=== PATIENT | female | born 1950 ===

== ENCOUNTER 2016-09-25 13:42 | Emergency (ER) | payer MEDICARE ==
[2016-09-25 13:53] VITALS: TEMP 98.2
[2016-09-25] MEDS ORDERED: ONDANSETRON 4 MG/2 ML VIAL IVP STA (14:11)
[2016-09-25] MEDS ORDERED: HYDROmorphone 1 MG/ML 1 ML SYRINGE IVP STA ×2 (14:11→15:49)
[2016-09-25] MEDS ORDERED: SODIUM CHLORIDE 0.9% 500 ML IV ONE (14:12)
--- NOTE | 2016-09-25 14:14 | ED ---
Fall HPI <Grant Smith - Last Filed: 09/25/16 16:49> - General Source: patient, RN notes reviewed Mode of arrival: ambulatory Limitations: no limitations <Guillermo Pisano - Last Filed: 09/25/16 16:59> - General Chief Complaint: Fall Stated Complaint: Fall Time Seen by Provider: 09/25/16 13:57 - History of Present Illness Initial Comments: 58-year-old female presents emergency Department chief complaint sudden fall. She states she was outside taking down [employer] decorations and which she tripped over the dog leash falling forward onto concrete. Patient states she hit the right side of her face, chipped her teeth. Patient states that she did not lose consciousness. Denies any neck or back pain. Patient states she has severe left wrist pain. Patient is right-hand dominant. There is a deformity noted to the left wrist. Patient states she feels very lightheaded, dizzy, nauseated. (Guillermo Pisano) - Related Data Home Medications Medication Instructions Recorded Confirmed Cyanocobalamin [Vitamin B-12] 250 mcg SQ Q14D 08/03/15 09/25/16 Estradiol Cream [Estrace Cream] 1 applic VAGINAL SA 08/03/15 09/25/16 Sucralfate [Carafate] 1 gm PO QID PRN 08/03/15 09/25/16 Thyroid,Pork [[place] Thyroid] 15 mg PO DAILY 08/03/15 09/25/16 Previous Rx's Medication Instructions Recorded Hydrocodone/Acetaminophen [[place] 1 tab PO Q6HR PRN #20 tab 09/25/16 5-325] Allergies Allergy/AdvReac Type Severity Reaction Status Date / Time codeine Allergy Rash/Hives Verified 09/25/16 14:57 meperidine HCl [From Demerol] Allergy Rash/Hives Verified 09/25/16 14:57 Penicillins Allergy Rash/Hives Verified 09/25/16 14:57 alcohol AdvReac Severe Flushing Verified 09/25/16 14:57 Review of Systems ROS Other: All systems not noted in ROS Statement are negative. <Grant Smith - Last Filed: 09/25/16 16:49> ROS Other: All systems not noted in ROS Statement are negative. <Guillermo Pisano - Last Filed: 01/01/17 16:59> ROS Statement: Those systems with pertinent positive or pertinent negative responses have been documented in the HPI. (Grant Smith) (Guillermo Pisano) Past Medical History Additional Past Medical History / Comment(s): anemia History of Any Multi-Drug Resistant Organisms: None Reported Past Surgical History: Cholecystectomy, Hysterectomy, Orthopedic Surgery, Tonsillectomy Additional Past Surgical History / Comment(s): left knee, sinus Past Psychological History: No Psychological Hx Reported Smoking Status: Never smoker Past Alcohol Use History: None Reported Past Drug Use History: None Reported <Guillermo Pisano - Last Filed: 09/25/16 16:59> General Exam General appearance: alert, in no apparent distress Head exam: Present: atraumatic, normocephalic, normal inspection Eye exam: Present: normal appearance, PERRL, EOMI. Absent: scleral icterus, conjunctival injection, periorbital swelling ENT exam: Present: mucous membranes moist. Absent: normal oropharynx (Dental fracture noted of #8 and 9) Neck exam: Present: normal inspection, full ROM. Absent: tenderness, meningismus, lymphadenopathy Respiratory exam: Present: normal lung sounds bilaterally. Absent: respiratory distress, wheezes, rales, rhonchi, stridor Cardiovascular Exam: Present: regular rate, normal rhythm, normal heart sounds. Absent: systolic murmur, diastolic murmur, rubs, gallop, clicks Extremities exam: Present: other (Left wrist there is an obvious deformity, radial pulses equal bilaterally Refill less than 2 seconds full sensation of the digits patient has limited range of motion) Back exam: Present: full ROM. Absent: tenderness Neurological exam: Present: alert, oriented X3, CN II-XII intact, reflexes normal. Absent: motor sensory deficit Skin exam: Present: warm, dry, intact, normal color. Absent: rash <Guillermo Pisano - Last Filed: 09/25/16 16:59> Procedures <Grant Smith - Last Filed: 09/25/16 16:49> <Guillermo Pisano - Last Filed: 09/25/16 16:59> - Procedures Initial comment: Procedure; permission for conscious sedation obtained, conscious sedation was needed to reduce a distal left radius fracture. At bedside with the physician ER physician and orthopod, ER nurse, termite technician. The patient's vital signs were monitored before during and after and no time to the patient's pulse ox dropped below 97%. The patient was monitored consecutively inconsistently. Length of procedure 25 minutes. A total of 18 mg of etomidate was used to sedate the patient was allowed the orthopedic surgeon to reduce the fracture and apply a cast. Length of procedure [address] Smith (Grant Smith) Disposition <Grant Smith - Last Filed: 09/25/16 16:49> Time of Disposition: 16:58 <Guillermo Pisano - Last Filed: 09/25/16 16:59> Clinical Impression: Fall, Facial contusion, Tooth fracture, Left wrist fracture Disposition: HOME SELF-CARE Condition: Stable Instructions: Arm Fracture in Adults (ED) Additional Instructions: Please return to the Emergency Department if symptoms worsen or any other concerns. Prescriptions: Hydrocodone/Acetaminophen [[place] 5-325] 1 tab PO Q6HR PRN #20 tab PRN Reason: Pain Referrals: Ace Moody MD [Primary Care Provider] - 1-2 days Man Estrella MD [STAFF PHYSICIAN] - 1-2 days
--- NOTE | 2016-09-25 15:16 | CT ---
EXAMINATION TYPE: CT brain wo con DATE OF EXAM: 09/25/2016 3:10 PM COMPARISON: 11/09/2009 HISTORY: Fall CT DLP: 1052 mGycm Automated exposure control for dose reduction was used. FINDINGS: The ventricles and sulci appear normal. There is no mass effect or midline shift. There is no sign of intracranial hemorrhage. The calvarium appears intact. I see no fracture. IMPRESSION: Negative unenhanced head CT scan. No change.
--- NOTE | 2016-09-25 15:22 | CT ---
EXAMINATION TYPE: CT facial bones wo con DATE OF EXAM: 09/25/2016 3:11 PM COMPARISON: NONE HISTORY: Fall CT DLP: 793 mGycm Automated exposure control for dose reduction was used. TECHNIQUE: CT scan of the sinuses is performed without contrast, axial images are obtained, coronal r eformatted images are also reviewed. FINDINGS: The orbital margins are intact. The maxilla is intact. Nasal bone is intact. Zygomatic arches appear normal. The mandibular ring appears intact. There is evidence of previous surgery on the maxillary si nuses. There is normal aeration of the paranasal sinuses. I see no bony destructive process. There is no sign of a blowout fracture. There is no evidence of an orbital mass. IMPRESSION: Negative CT scan of the facial bones. No fracture seen.
--- NOTE | 2016-09-25 15:31 | XR ---
EXAMINATION TYPE: XR wrist complete LT DATE OF EXAM: 09/25/2016 3:07 PM COMPARISON: NONE HISTORY: Fell today TECHNIQUE: 4 views FINDINGS: There is an impacted comminuted fracture of the distal radius. There is also adjacent fract ure of ulnar styloid process. There is no dislocation. There is posterior displacement of the carpus in relation to the radius. Carpal bones are intact. IMPRESSION: Severely comminuted impacted distal radius fracture.
[2016-09-25] MEDS ORDERED: ETOMIDATE 2 MG/ML 10 ML VIAL IVP STA ×2 (15:50→16:42)
[2016-09-25 16:42] VITALS: PULSE 92
[2016-09-25 16:52] VITALS: BP 148/69; RESP 16
--- NOTE | 2016-09-27 10:03 | CONS ---
DATE OF CONSULTATION: 09/25/2016 REASON FOR CONSULTATION: Left displaced close distal radius fracture. Lakshmi is a very pleasant 66-year-old female. Earlier in the day on September 25, 2016 she tripped over a dog and fell onto an outstretched left hand. She had obvious deformity and immediate pain in the left wrist. She was brought by her to [facility] emergency department. Work-up including x-rays revealed a significantly displaced left closed distal radius fracture. I was called by the ER physician. I presented to the ER for evaluation of her severe left wrist injury. I saw her in the emergency department. She was resting comfortably. She had obvious deformity to the left wrist. She had no complaints of pain anywhere else. Obvious deformity left wrist. The skin was intact. There is no evidence of open fracture. She had intact sensation distally in her fingers and brisk capillary refill distally in her fingers. She had no pain proximally in the forearm or the elbow on the left side. X-RAYS: Views of the wrist show a severely displaced left distal radius fracture. IMPRESSION: Left closed distal radius fracture. RECOMMENDATIONS: Very significantly displaced fracture. Recommendation was made to go forward with closed reduction under hematoma block with mild sedation by the emergency department. This was discussed with both Sharon and her . Separate note will be dictated for the procedure note for reduction and application of short arm splint. Following the reduction, Lakshmi will be discharged to home. I did give her my office card number, she will follow up with me this upcoming Monday in the office. We will continue to evaluate her wrist, and make further treatment decisions at that time.
--- NOTE | 2016-09-27 13:54 | PCN ---
DATE OF PROCEDURE: 09/25/2016 SURGEON: RAVINDER OLIVARES MD PREOPERATIVE DIAGNOSIS: Left closed displaced distal radius fracture. POSTOPERATIVE DIAGNOSIS: Left closed displaced distal radius fracture. OPERATION: 1. Closed reduction left closed distal radius fracture. 2. Short arm splint application left wrist. ANESTHESIA: A hematoma block with conscious sedation administered per the emergency department physician. COMPLICATIONS: None apparent. INDICATIONS: Please see the emergency department note dictated by myself for her history. DESCRIPTION OF THE PROCEDURE: The dorsum of the left wrist was sterilized with alcohol and Betadine. I then utilized 10 mL of 2% lidocaine without epinephrine for hematoma block. This is administered dorsally into the fracture site. This provided good analgesia for the procedure. She also was given conscious sedation as per the emergency department physician. Please see his note for details about that. I then proceeded to reduce her fracture longitudinal traction and manual reduction techniques. There was noticeable deformity correction of the wrist done with the reduction. I then placed a very well-padded sugar-tong splint. This was well molded. She had intact flexion-extension of all of her fingers. She had intact sensation in all of her fingers and she had brisk capillary refill in all of her fingers as well. Lakshmi tolerated the procedure well without any complication.
== END 2016-09-25 17:00 | disposition home or self-care (01) ==
LOC: EC 13:42
DX: S52.592A Other fractures of lower end of left radius, initial encounter for closed fracture (principal); S00.83XA Contusion of other part of head, initial encounter; S02.5XXA Fracture of tooth (traumatic), initial encounter for closed fracture; Z88.0 Allergy status to penicillin; Z88.5 Allergy status to narcotic agent; Z91.048 Other nonmedicinal substance allergy status; Z79.899 Other long term (current) drug therapy; W18.09XA Striking against other object with subsequent fall, initial encounter; Y93.89 Activity, other specified; Y92.017 Garden or yard in single-family (private) house as the place of occurrence of the external cause
CPT/HCPCS: 99284; 96374; 96375; 96376; 25605; 73110; 70486; 70450; J2405; J1170

== ENCOUNTER → 2016-12-08 | Outpatient (CLI) | payer MEDICARE ==
[2016-12-07 14:14] VITALS: BMI 25.8
[2016-12-08 10:56] VITALS: BP 150/73; PULSE 92; RESP 16
--- NOTE | 2016-12-10 19:08 | P.CONS ---
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 ,and he recommended stellate ganglion block, and she was placed on Neurontin 300 mg daily, increase gradually to 3 times a day, patient already started physical therapy and she feels her symptoms improving, and her pain is subsiding she is able to do physical therapy, which helped significantly, and currently patient here for second opinion regarding the interventional pain management, patient denies any fever or night sweats, she denies any discharge from the incision area, and she denies any discoloration of her left triceps Past Medical History Past Medical History: Eye Disorder, GERD/Reflux, Thyroid Disorder Additional Past Medical History / Comment(s): anemia, lt wrist and hand pt states possible nerve damage to lt wrist History of Any Multi-Drug Resistant Organisms: None Reported Past Surgical History: Cholecystectomy, Hysterectomy, Orthopedic Surgery, Tonsillectomy Additional Past Surgical History / Comment(s): left knee, sinus, scleral buckle surgery, ORIF lt wrist (10-14-16) Past Anesthesia/Blood Transfusion Reactions: Motion Sickness, Postoperative Nausea & Vomiting (PONV) Past Psychological History: No Psychological Hx Reported Smoking Status: Never smoker Past Alcohol Use History: None Reported Past Drug Use History: None Reported - Past Family History Mother Family Medical History: Deep Vein Thrombosis (DVT), Vascular Disorder Medications and Allergies Home Medications Medication Instructions Recorded Confirmed Type Cyanocobalamin [Vitamin B-12] 250 mcg SQ Q14D 08/03/15 12/08/16 History Estradiol Cream [Estrace Cream 1 applic VAGINAL SA 08/03/15 12/08/16 History 0.01%] Sucralfate [Carafate] 1 gm PO QID PRN 08/03/15 12/08/16 History Thyroid,Pork [[place] Thyroid] 15 mg PO DAILY 08/03/15 12/08/16 History HYDROcodone/APAP 5-325MG [[place] 1 tab PO Q6HR PRN 12/08/16 12/08/16 History 5-325] Allergies Allergy/AdvReac Type Severity Reaction Status Date / Time codeine Allergy Rash/Hives Verified 12/07/16 14:00 meperidine HCl [From Demerol] Allergy Rash/Hives Verified 12/07/16 14:00 Penicillins Allergy Rash/Hives Verified 12/07/16 14:00 alcohol AdvReac Severe Flushing Verified 12/07/16 14:00 Physical Exam Social history : not smoker , NO ETOH , NO Illegal cecilia Review of Systems : 1- Constitutional : no chills , no fever , no night sweats , 2- Ears : no ear discharge , no change in hearing 3-Nose, Mouth ,Throat ; no bleeding gums, no sore throat , no epistaxis , 4-Cardiovascular : Denies chest pain, , no orthopnea , no palpitation 5-Respiratory : Denies cough , no dyspnea , no hemoptysis 6-Gastrointestinal :, no change in bowel habits , no coffee- ground emesis . 7-Genitourinary : No hematuria , no discharge , no incontinence, 8-Musculoskeletal : No gait dysfunction , report left wrist pain 9- Neurological : no ataxia , no tremor , no sezure , 10-Psychatric , no suicidal ideation no hallucination 11- Endocrine : no cold intolerence , no polyuria , no polydypsia , 12-Hematologic : no easy bleeding , no easy brusing , 13-Allergic / immunology : no angioedema , no wheezing ,no allergic rhinitis 14-Integumentary : no brttle nails , [id number] swelling in her left wrist Physical Examinations : 1-Constitutional : Cooperative , not in acute distress . 2-HEENT : nech ; supple , no Lymphadenopathy , no Thyromegaly , :eyes , no icterus, no photophobia . ENT : , normal oropharynx , no Thrush 3- Respiratory : Chest clear to auscultations Bilaterally , no wheezing . 4- Cardiovascular : regular rate and rhythem , S1 , S2 , no S3 , no S4. 5- Gastrointestinal: abdomen soft no tenderness , no organomegally . 6- Genitourinary : Defferred . 7-Integumentary : No cellulitis , no ulcers , normal skin turgor , no cyanotic . 8- neurologic : Cranial nerve II to XII intact , no focal neurological deffecit 9-psychatric : alert , oriented X 3 , appropriate affect , intact judgment and insight . 10-Lymphatic : no Lymphadenopathy. 11- musculoskeltal: normal gait , exams of the cervical spine = motor stregnth in the deltoid and biceps, normal right side , normal Left side motor stregnth biceps and the wrist extensors normal right side , decreased left side . 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, patient reported that her symptoms are improving, the swelling subsided significantly, and the pain improving, and she reported that the current pain medication [place] 5/325 is helping her pain, and she is able to do physical therapy without any problem, she was given prescription for Neurontin 300 mg daily at bedtime and increase gradually to 3003 times a day, which she didn't fill up the prescription yet, I encouraged patient to start using Neurontin 300 mg and increase gradually to 3 times a day, encouraged patient to use [place] 5/325 when needed for pain, and encouraged patient to do physical therapy(she is doing it twice a day and she reported that she had significant improvement from physical therapy), explained to the patient the side effects of selected ganglion block and the risks and benefits of the block, and she is concerned about the injection, and I discussed with her ,that in case of her symptoms not improving, or worsening,then she is definitely could benefit from the stellate ganglion block,, patient will follow up with [facility] pain clinic, if she wished to proceed with the stellate ganglion block,, and she will follow up with pain clinic at [facility] . Time with Patient: Less than 30
== END | disposition home or self-care (01) ==
LOC: PNWHC3 10:24
PROVIDERS: ATTEND Specialist
DX: G90.512 Complex regional pain syndrome I of left upper limb (principal); Z79.891 Long term (current) use of opiate analgesic; Z88.5 Allergy status to narcotic agent; Z88.0 Allergy status to penicillin
CPT/HCPCS: 99211

== ENCOUNTER → 2017-01-19 | Outpatient (CLI) | payer MEDICARE ==
--- NOTE | 2017-01-19 12:16 | USB ---
Reason for exam: follow-up at short interval from prior study. History: Patient is postmenopausal. Took estrogen for 4 years 4 months beginning at age 54. Taking other hormone for 4 years. Physical Findings: Nurse Summary: less than 0.5cm nodule in the left breast at 12 o'clock (nurse kp). US Breast LT Left breast ultrasound demonstrates a 0.3 x 0.2 x 0.2cm lesion too small to characterize at 5 o'clock versus 3 x 1 x 2mm previously, suggests a benign etiology and a 0.4 x 0.4 x 0.3cm oval, cystic lesion at 10 o'clock versus 4 x 3 x 2mm previously, benign. The previous 12 o'clock lesion is no longer seen. Patient due for annual exam in 6 months which can be performed in diagnostic clinic to ensure stability from 07/14/15. These results were verbally communicated with the patient and result sheet given to the patient on 01/19/17. ASSESSMENT: Probably benign, BI-RAD 3 RECOMMENDATION: Follow-up diagnostic mammogram of both breasts in 6 months. Back on schedule for June 2017.
== END | disposition home or self-care (01) ==
LOC: RADUSWWP 09:52
PROVIDERS: ATTEND Internal Medicine
DX: R92.8 Other abnormal and inconclusive findings on diagnostic imaging of breast (principal)

== ENCOUNTER → 2017-08-07 | Outpatient (CLI) | payer MEDICARE ==
--- NOTE | 2017-08-07 11:38 | MM ---
Reason for exam: additional evaluation requested from prior study. Last mammogram was performed 1 year and 1 month ago. History: Patient is postmenopausal. Took estrogen for 4 years 4 months beginning at age 54. Taking other hormone for 4 years. Physical Findings: Nurse did not find any significant physical abnormalities on exam. MG 3D Diag Mammo W/Cad AMRKUS Bilateral CC and MLO view(s) were taken. Prior study comparison: July 20, 2016, bilateral MG 3d diag mammo w/cad MARKUS. January 08, 2016, left breast MG 3d diag mammo w/cad LT. There are scattered fibroglandular densities. Focal asymmetry in the right upper outer quadrant is unchanged. No significant new findings when compared with previous films. These results were verbally communicated with the patient and result sheet given to the patient on 08/07/17. ASSESSMENT: Negative, BI-RAD 1 RECOMMENDATION: Routine screening mammogram of both breasts in 1 year.
--- NOTE | 2017-08-07 17:07 | BD ---
EXAMINATION TYPE: MG DEXA axial skeleton. DATE OF EXAM: 08/07/2017 COMPARISON: NONE CLINICAL HISTORY: 66 year-old female known osteoporosis Height: 67.7 IN Weight: 177 LBS FRAX RISK QUESTIONS: Alcohol (3 or more units per day): NO Family History (Parent hip fracture): YES FATHER AGE 89 Glucocorticoids (More than 3mos): NO (Ex: prednisone, prednisolone, methylprednisolone, dexamethasone, and hydrocortisone). History of Fracture in Adulthood: YES AGE 66 LEFT WRIST Secondary Osteoporosis: 1. Type 1 Diabetes: NO 2. Hyperthyroidism: NO 3. Menopause before 45: NO 4. Malnutrition: NO 5. Chronic liver disease: NO Rheumatoid Arthritis: YES Current Tobacco Use: NO RISK FACTORS HISTORY OF: History of Wrist Fracture: YES LEFT When: AGE 66 Surgery to Wrist (left): YES LEFT When: AGE 66 Family History of Osteoporosis: YES FATHER Active: YES Diet low in dairy products/other sources of calcium: YES Postmenopausal woman: AGE 52 Take estrogen and/or progesterone medications: NOT NOW How long: AGE 52 - 56 MEDICATIONS: Thyroid Medications: YES Which medication: ARMOUR THYROID How Lon + YEARS Additional Medications: CALCIUM, VIT D, ARMOUR, B12 INJECTIONS, CARAFATE, EXAM MEASUREMENTS: Bone mineral densitometry was performed using the Volly System. Bone mineral density as measured about the Lumbar spine is: ----- L1-L4(G/cm2): 1.034 T Score Values are as follows: ----- L2: -1.4 ----- L3: -0.9 ----- L4: -1.2 ----- L1-L4: -1.2 Bone mineral density has: Decreased -4.9% since study of: 07/03/2014 Bone mineral density about the R hip (g/cm2): 0.766 Bone mineral density about the L hip (g/cm2): 0.757 T Score values are as follows: -----R Neck: -2.0 -----L Neck: -2.0 -----R Total: -2.0 -----L Total: -1.7 Bone mineral density has: Decreased 8% since study of: 07/03/2014 IMPRESSION: Osteopenia (T Score between -2.5 and -1 as noted by T score values There is slightly increased risk of fracture and the patient may be considered for treatment. Re-Screen 2-5 years. NOTE: T-SCORE=SD OF THE YOUNG ADULT MEAN.
== END | disposition home or self-care (01) ==
LOC: RADMAMWWP 09:41
PROVIDERS: ATTEND Internal Medicine
DX: M81.0 Age-related osteoporosis without current pathological fracture (principal); M85.80 Other specified disorders of bone density and structure, unspecified site; R92.8 Other abnormal and inconclusive findings on diagnostic imaging of breast; N60.09 Solitary cyst of unspecified breast
CPT/HCPCS: 77080; G0204; G0279

== ENCOUNTER 2017-08-11 08:02 | Day surgery (SDC) | payer MEDICARE ==
[2017-08-09 10:55] VITALS: BMI 26.6
[~2017-08-11 08:02] MED LIST: LACTATED RINGERS 1,000 ML IV SCH; LIDOCAINE 1% 20 ML VIAL (10MG/ML) FOR IV START INTRADERMA PRN
[2017-08-11 08:30] VITALS: TEMP 97.8
[2017-08-11] MEDS ORDERED: PROPOFOL 10 MG/ML 20 ML VIAL IV ONE (08:53)
--- NOTE | 2017-08-11 09:00 | P.PCN ---
Date of Procedure: 08/11/17 Procedure(s) Performed: BRIEF HISTORY: Patient is a 58-year-old, pleasant, white female, scheduled for an upper endoscopy as a part of evaluation of intermittent epigastric pain and history of pernicious anemia. Last upper endoscopy was in 2 years ago and was noted to have atrophic gastritis with intestinal metaplasia. PROCEDURE PERFORMED: Esophagogastroduodenoscopy with biopsy. PREOPERATIVE DIAGNOSIS: Epigastric pain/pernicious anemia. IV sedation per anesthesia. PROCEDURE: After informed consent was obtained, the patient was brought into the endoscopy unit. IV sedation was administered by Anesthesia under continuous monitoring. Initially the Olympus GIF-140 video endoscope was inserted into the mouth. Esophagus intubated without any difficulty. It was gradually advanced into the stomach and duodenum and carefully examined. The bulb and the second part of the duodenum appeared normal. The scope at this time was withdrawn to the stomach, adequately insufflated with air, and upon careful examination, mucosa of the antrum, body,had mild diffuse gastritis and biopsies were done from the antrum as well as body of the stomach. No ulcerations or masses identified. The cardia and the fundus appeared normal. The scope was then withdrawn into the esophagus. The GE junction was located at 39 cm from the incisors. The esophagus appeared normal. There were no erosions or ulcerations seen and the patient tolerated the procedure well. IMPRESSION: 1. Mild diffuse gastritis 2. No evidence of peptic ulcer disease or esophagitis RECOMMENDATIONS: The findings of this examination were discussed with the patient as well as a family. She was advised to follow with the biopsy results. She can have a repeat surveillance upper endoscopy in 2 years.
[2017-08-11 09:14] VITALS: RESP 18
[2017-08-11 09:25] VITALS: BP 130/63; PULSE 76
== END 2017-08-11 10:05 | disposition home or self-care (01) ==
LOC: ORWHC2ENDO 08:02
PROVIDERS: ATTEND Internal Medicine Gastroenterology
DX: K29.50 Unspecified chronic gastritis without bleeding (principal); D51.0 Vitamin B12 deficiency anemia due to intrinsic factor deficiency; E07.9 Disorder of thyroid, unspecified; Z88.0 Allergy status to penicillin; Z88.5 Allergy status to narcotic agent; Z91.09 Other allergy status, other than to drugs and biological substances; Z79.82 Long term (current) use of aspirin; Z79.899 Other long term (current) drug therapy
CPT/HCPCS: 43239; 88305; 88342; J2704

== ENCOUNTER → 2018-08-09 | Outpatient (CLI) | payer MEDICARE ==
--- NOTE | 2018-08-13 07:07 | MM ---
Reason for exam: screening (asymptomatic). Last mammogram was performed 1 year ago. History: Patient is postmenopausal. Took estrogen for 4 years 4 months beginning at age 54. Taking other hormone for 4 years. Physical Findings: A clinical breast exam by your physician is recommended on an annual basis and results should be correlated with mammographic findings. MG 3D Screening Mammo W/Cad Bilateral CC and MLO view(s) were taken. Prior study comparison: August 07, 2017, bilateral MG 3d diag mammo w/cad MARKUS. July 20, 2016, bilateral MG 3d diag mammo w/cad MARKUS. The breast tissue is heterogeneously dense. This may lower the sensitivity of mammography. New nodular density inner upper left breast 5.2cm from nipple. This finding is changed when compared with previous exams. ASSESSMENT: Incomplete: need additional imaging evaluation, BI-RAD 0 RECOMMENDATION: Special view mammogram and ultrasound of the left breast. [facility] will attempt to contact patient to return for supplemental views and ultrasound.
== END | disposition home or self-care (01) ==
LOC: RADMAMWWP 11:35
PROVIDERS: ATTEND Internal Medicine
DX: Z12.31 Encounter for screening mammogram for malignant neoplasm of breast (principal)
CPT/HCPCS: 77063; 77067

== ENCOUNTER → 2018-08-20 | Outpatient (CLI) | payer MEDICARE ==
--- NOTE | 2018-08-20 14:51 | MM ---
Reason for exam: additional evaluation requested from abnormal screening. Last mammogram was performed less than 1 month ago. History: Patient is postmenopausal. Took estrogen for 4 years 4 months beginning at age 54. Taking other hormone for 4 years. Physical Findings: Nurse Summary: 1cm nodule in the left breast at 2 o'clock (nurse trevor). MG 3D Work Up W/Cad LT Spot compression CC, spot compression MLO, and ML view(s) were taken of the left breast. Prior study comparison: August 09, 2018, bilateral MG 3d screening mammo w/cad. August 07, 2017, bilateral MG 3d diag mammo w/cad [facility]US. There are scattered fibroglandular densities. Finding: There is a 5 mm circumscribed round mass located 4 cm from the nipple in the left breast. These results were verbally communicated with the patient and result sheet given to the patient on 08/20/18. ASSESSMENT: Incomplete: need additional imaging evaluation, BI-RAD 0 RECOMMENDATION: Ultrasound of the left breast.
--- NOTE | 2018-08-20 14:53 | USB ---
Reason for exam: additional evaluation requested from abnormal screening. History: Patient is postmenopausal. Took estrogen for 4 years 4 months beginning at age 54. Taking other hormone for 4 years. US Breast Workup Limited LT Left limited breast ultrasound including focal area of concern, retroareolar and axilla demonstrates a 0.5 x 0.5 x 0.3cm oval, cystic lesion at 10 o'clock, a 0.6 x 0.4 x 0.2cm cystic cluster at 11 o'clock and a 0.9 x 0.7 x 0.4cm oval, hypoechoic, vascular lesion at 1 o'clock BB, questionable lymph node. These results were verbally communicated with the patient and result sheet given to the patient on 08/20/18. ASSESSMENT: Benign, BI-RAD 2 RECOMMENDATION: Return to routine screening mammogram schedule for both breasts.
== END | disposition home or self-care (01) ==
LOC: RADMAMWWP 13:14
PROVIDERS: ATTEND Internal Medicine
DX: R92.8 Other abnormal and inconclusive findings on diagnostic imaging of breast (principal)
CPT/HCPCS: 77065; 76642; G0279; 77061

== ENCOUNTER → 2018-12-24 | Outpatient (CLI) | payer MEDICARE ==
--- NOTE | 2018-12-24 12:02 | US ---
EXAMINATION TYPE: US groin LT DATE OF EXAM: 12/24/2018 COMPARISON: NONE CLINICAL HISTORY: Left groin pain. Patient states having left groin pain. No bulge. Area of pain scanned. Valsalva maneuvers and contralateral images taken. No prominent masses, lesio ns or fluid collections seen. Hernia not visualized. IMPRESSION: Dedicated MSK ultrasound was not performed. The area scanned shows no suspicious abnorma lity as detailed above.
== END | disposition home or self-care (01) ==
LOC: RADUSWWP 10:44
PROVIDERS: ATTEND Internal Medicine
DX: R10.30 Lower abdominal pain, unspecified (principal); S76.219A Strain of adductor muscle, fascia and tendon of unspecified thigh, initial encounter

== ENCOUNTER 2019-08-07 07:33 | Day surgery (SDC) | payer MEDICARE ==
[2019-08-05 18:24] VITALS: BMI 26.3
[2019-08-07 08:15] VITALS: TEMP 97.8
[2019-08-07] MEDS ORDERED: LIDOCAINE 1% INJ 10MG/ML (20 ML MDV) ONE (08:28)
[2019-08-07] MEDS ORDERED: PROPOFOL 10 MG/ML 20 ML VIAL IV ONE (08:28)
--- NOTE | 2019-08-07 08:42 | P.PCN ---
Date of Procedure: 08/07/19 Procedure(s) Performed: BRIEF HISTORY: Patient is a 68-year-old, pleasant, female, scheduled for an upper endoscopy as a part of follow-up of pernicious anemia and chronic atrophic gastritis diagnosed 15 years ago. Last upper endoscopy was in 2 years ago and was noted to have intestinal metaplasia.. PROCEDURE PERFORMED: Esophagogastroduodenoscopy with biopsy. PREOPERATIVE DIAGNOSIS: Follow-up chronic atrophic gastritis/pernicious anemia. IV sedation per anesthesia. PROCEDURE: After informed consent was obtained, the patient was brought into the endoscopy unit. IV sedation was administered by Anesthesia under continuous monitoring. Initially the Olympus GIF-140 video endoscope was inserted into the mouth. Esophagus intubated without any difficulty. It was gradually advanced into the stomach and duodenum and carefully examined. The bulb and the second part of the duodenum appeared normal. The scope at this time was withdrawn to the stomach, adequately insufflated with air, and upon careful examination, mucosa of the antrum, body showed mild diffuse gastritis and biopsy multiple biopsies were done from this area. The, cardia and the fundus appeared normal. The scope was then withdrawn into the esophagus. The GE junction was located at 39 cm from the incisors. The esophagus appeared normal. There were no erosions or ulcerations seen and the patient tolerated the procedure well. IMPRESSION: 1. Mild diffuse gastritis. 2. No evidence of peptic ulcer disease RECOMMENDATIONS: The findings of this examination were discussed with the patient well as her family. She was advised to follow with the biopsy results. Based the biopsy results will plan a repeat upper endoscopy every 2 years.
[2019-08-07 09:06] VITALS: BP 125/78; PULSE 75; RESP 17
== END 2019-08-07 09:40 | disposition home or self-care (01) ==
LOC: ORWHC2ENDO 07:33
PROVIDERS: ATTEND Internal Medicine Gastroenterology
DX: K31.9 Disease of stomach and duodenum, unspecified (principal); D51.0 Vitamin B12 deficiency anemia due to intrinsic factor deficiency; K29.50 Unspecified chronic gastritis without bleeding; K21.9 Gastro-esophageal reflux disease without esophagitis; Z79.82 Long term (current) use of aspirin; Z79.890 Hormone replacement therapy; Z79.899 Other long term (current) drug therapy; Z88.5 Allergy status to narcotic agent; Z88.0 Allergy status to penicillin; Z88.8 Allergy status to other drugs, medicaments and biological substances
CPT/HCPCS: 88305; 43239; J2001; J2704

== ENCOUNTER → 2019-08-21 | Outpatient (CLI) | payer MEDICARE ==
--- NOTE | 2019-08-21 18:05 | BD ---
EXAMINATION TYPE: Axial Bone Density DATE OF EXAM: 08/21/2019 COMPARISON: 2017 DEXA bone scan. CLINICAL HISTORY: disorder of bone Height: 5'7 Weight: 171 FRAX RISK QUESTIONS: Family History (Parent hip fracture): y History of Fracture in Adulthood: y Secondary Osteoporosis: RISK FACTORS HISTORY OF: History of Wrist Fracture: left When: 2017 Surgery to Wrist (left): When: 2017 Family History of Osteoporosis: y Postmenopausal woman: y MEDICATIONS: Thyroid Medications: Which medication: Armathyoid How Lon years Additional Medications: B 12, Additional History: EXAM MEASUREMENTS: Bone mineral densitometry was performed using the [employer] System. Bone mineral density as measured about the Lumbar spine is: ----- L1-L4(G/cm2): 1.018 T Score Values are as follows: ----- L2: -1.7 ----- L3: -0.6 ----- L4: -1.5 ----- L1-L4: -1.4 Bone mineral density has: Decreased -0.9% since study of: 08/07/2017 Bone mineral density about the R hip (g/cm2): 0.786 Bone mineral density about the L hip (g/cm2): 0.725 T Score values are as follows: -----R Neck:-1.8 -----L NeCK: -2.3 -----R Intertrochanter: -2.3 -----L Intertrochanter: -2.2 Bone mineral density has: Increased Decreased -5.8 % since study of:08/07/2017 IMPRESSION: Osteopenia (T Score between -2.5 and -1) remains present. Bone density is noted decreased or diminish ed from prior. There remains slightly increased risk of fracture and the patient may be considered for treatment. Re-Screen 2-5 years. NOTE: T-SCORE=SD OF THE YOUNG ADULT MEAN.
--- NOTE | 2019-08-23 11:39 | MM ---
Reason for exam: screening (asymptomatic). Last mammogram was performed 1 year ago. History: Patient is postmenopausal. Took estrogen for 4 years 4 months beginning at age 54. Taking other hormone for 4 years. Physical Findings: A clinical breast exam by your physician is recommended on an annual basis and results should be correlated with mammographic findings. MG 3D Screening Mammo W/Cad Bilateral CC and MLO view(s) were taken. XCCL view(s) were taken of the left breast. Prior study comparison: August 20, 2018, left breast MG 3d work up w/cad LT. August 09, 2018, bilateral MG 3d screening mammo w/cad. The breast tissue is heterogeneously dense. This may lower the sensitivity of mammography. There is chronic nodularity in the left breast, stable. No significant changes when compared with prior studies. ASSESSMENT: Benign, BI-RAD 2 RECOMMENDATION: Routine screening mammogram of both breasts in 1 year.
== END | disposition home or self-care (01) ==
LOC: RADMAMWWP 15:14
PROVIDERS: ATTEND Internal Medicine
DX: Z12.31 Encounter for screening mammogram for malignant neoplasm of breast (principal); M85.80 Other specified disorders of bone density and structure, unspecified site
CPT/HCPCS: 77063; 77067; 77080

== ENCOUNTER → 2019-10-08 | Outpatient (CLI) | payer MEDICARE ==
--- NOTE | 2019-10-08 15:44 | XR ---
EXAMINATION TYPE: XR chest 2V DATE OF EXAM: 10/08/2019 COMPARISON: NONE HISTORY: Cough and congestion TECHNIQUE: Frontal and lateral views of the chest are obtained. FINDINGS: There is no focal air space opacity, pleural effusion, or pneumothorax seen. The cardiac silhouette size is within normal limits. The osseous structures are intact. Aorta is dense. IMPRESSION: No acute cardiopulmonary process.
== END | disposition home or self-care (01) ==
LOC: RADXRMAIN 15:15
PROVIDERS: ATTEND Internal Medicine
DX: R05 Cough (principal)
CPT/HCPCS: 71046

== ENCOUNTER → 2020-07-01 | Outpatient (CLI) | payer MEDICARE | END | disposition home or self-care (01) | LOC: LABWHC1 10:47 | PROVIDERS: ATTEND Internal Medicine | DX: Z03.818 Encounter for observation for suspected exposure to other biological agents ruled out (principal) ==

== ENCOUNTER 2020-07-08 14:44 | Observation (INO) | payer MEDICARE ==
[2020-07-08] MEDS ORDERED: DILTIAZEM DRIP BOLUS FROM BAG 1 MG SOLN IV ONE (15:27)
[2020-07-08] MEDS ORDERED: DILTIAZEM 125 MG in SODIUM CHLORIDE 0.9% 100 ML IV SCH (15:30)
--- NOTE | 2020-07-08 15:31 | ED ---
General Adult HPI - General Chief complaint: Arrhythmia/Palpitations Stated complaint: palpitations Time Seen by Provider: 07/08/20 15:05 Source: patient, RN notes reviewed Mode of arrival: ambulatory Limitations: no limitations - History of Present Illness Initial comments: Patient is a pleasant 69-year-old female presenting to the emergency Department with complaints of palpitations. Onset of symptoms was a few days ago. Symptoms were brief and intermittent however has been more persistent since today. Patient does have cough over the past couple of weeks that has occasional mild productive that she swallows and has not looked for color. No dyspnea. No chest pain. No history of similar symptoms previously. - Related Data Home Medications Medication Instructions Recorded Confirmed Cyanocobalamin [Vitamin B-12] 250 mcg SQ Q14D 08/03/15 08/05/19 Sucralfate [Carafate] 1 gm PO QID PRN 08/03/15 08/05/19 Thyroid,Pork [[place] Thyroid] 15 mg PO DAILY 08/03/15 08/05/19 Alpha Lipoic Acid 50 mg PO DAILY 08/11/17 08/05/19 Aspirin 81 mg PO DAILY 08/11/17 08/05/19 Calcium Citrate/Vitamin D3 1 tab PO BID 08/11/17 08/05/19 [Calcitrate + Vit D Caplet] Cholecalciferol [Vitamin D3] 1,000 unit PO DAILY 08/11/17 08/05/19 Multivitamins, Thera [Multivitamin 1 tab PO DAILY 08/11/17 08/05/19 (formulary)] [place]-3 Fatty Acids/Fish Oil [Fish 1 tab PO DAILY 08/11/17 08/05/19 Oil 1,000 mg Softgel] Vits A,C,E/Lutein/Minerals 1 each PO BID 08/11/17 08/05/19 [Ocuvite with Lutein Tablet] Allergies Allergy/AdvReac Type Severity Reaction Status Date / Time codeine Allergy Rash/Hives Verified 08/07/19 07:58 meperidine HCl [From Demerol] Allergy Rash/Hives Verified 08/07/19 07:58 Penicillins Allergy Rash/Hives Verified 08/07/19 07:58 alcohol AdvReac Severe Flushing Verified 08/07/19 07:58 Review of Systems ROS Statement: Those systems with pertinent positive or pertinent negative responses have been documented in the HPI. ROS Other: All systems not noted in ROS Statement are negative. Constitutional: Denies: fever Eyes: Denies: eye pain ENT: Denies: ear pain Respiratory: Reports: cough. Denies: dyspnea Cardiovascular: Reports: palpitations. Denies: chest pain Endocrine: Reports: fatigue Gastrointestinal: Denies: abdominal pain Genitourinary: Denies: dysuria Musculoskeletal: Denies: back pain Skin: Denies: rash Neurological: Denies: weakness Past Medical History Past Medical History: Blood Disorder, Eye Disorder, GERD/Reflux, Thyroid Disorder Additional Past Medical History / Comment(s): Pernicious Anemia; hx fx lt w rist/hand. History of Any Multi-Drug Resistant Organisms: None Reported Past Surgical History: Cholecystectomy, Hysterectomy, Orthopedic Surgery, Tons illectomy Additional Past Surgical History / Comment(s): left knee x2, sinus, scleral buckle surgery, ORIF lt wrist (10-14-16). Colonoscopy, EGD's Past Anesthesia/Blood Transfusion Reactions: Motion Sickness, Postoperative Nausea & Vomiting (PONV) Past Psychological History: No Psychological Hx Reported Smoking Status: Never smoker Past Alcohol Use History: None Reported Past Drug Use History: None Reported - Past Family History Mother Family Medical History: Deep Vein Thrombosis (DVT) General Exam Limitations: no limitations General appearance: alert, in no apparent distress Head exam: Present: normocephalic Eye exam: Present: normal appearance Neck exam: Present: normal inspection Respiratory exam: Present: normal lung sounds bilaterally Cardiovascular Exam: Present: tachycardia, irregular rhythm Expanded Peripheral pulses: 2+: Radial (R), Radial (L), Dorsalis Pedis (R), Dorsalis Pedis (L) GI/Abdominal exam: Present: soft. Absent: tenderness Extremities exam: Present: normal inspection. Absent: pedal edema, calf tenderness Neurological exam: Present: alert Psychiatric exam: Present: normal affect, normal mood Skin exam: Present: normal color Course Vital Signs 07/08/20 07/08/20 07/08/20 15:00 15:20 16:01 Temperature 98.0 F Pulse Rate 166 H 138 H 96 Respiratory 20 18 16 Rate Blood Pressure 199/115 166/83 O2 Sat by Pulse 98 99 Oximetry 07/08/20 16:47 Temperature Pulse Rate 83 Respiratory 16 Rate Blood Pressure 141/69 O2 Sat by Pulse 99 Oximetry - Reevaluation(s) Reevaluation #1: 07/08/20 15:30 EKG #2 shows narrow complex tachycardia with rate 154. QRS 82. QT 298. QTC 477. Normal axis. Normal QRS. Inferior T wave inversion. 07/08/20 16:03 EKG #3 shows sinus rhythm and 94 with premature atrial complexes. MN 152. QRS 82. QT 32. QTC 477. Normal axis. Normal QRS. No acute ST change. EKG Findings - EKG Comments: EKG Findings:: Neuro complex regular rhythm 11/24/1945. MN 136. QRS 84. QT 316. QTC 49. Normal axis. Low QRS voltage. Inferior T wave inversion Medical Decision Making - Medical Decision Making Patient reevaluated and has converted. Patient symptom free at this time. Patient family updated on results and plan. Case was discussed in detail with Dr. Faulkner, who will admit For hospital call. - Lab Data Result diagrams: 07/08/20 15:42 07/08/20 15:42 Lab Results 07/08/20 07/08/20 07/08/20 Range/Units 15:42 15:42 15:42 WBC 7.1 (3.8-10.6) k/uL RBC 5.00 (3.80-5.40) m/uL Hgb 14.5 (11.4-16.0) gm/dL Hct 44.8 (34.0-46.0) % MCV 89.6 (80.0-100.0) fL MCH 29.1 (25.0-35.0) pg MCHC 32.4 (31.0-37.0) g/dL RDW 14.1 (11.5-15.5) % Plt Count 340 (150-450) k/uL Neutrophils % 63 % Lymphocytes % 25 % Monocytes % 6 % Eosinophils % 3 % Basophils % 1 % Neutrophils # 4.5 (1.3-7.7) k/uL Lymphocytes # 1.8 (1.0-4.8) k/uL Monocytes # 0.4 (0-1.0) k/uL Eosinophils # 0.2 (0-0.7) k/uL Basophils # 0.0 (0-0.2) k/uL PT 9.8 (9.0-12.0) sec INR 0.9 (<1.2) APTT 25.4 (22.0-30.0) sec Sodium 139 (137-145) mmol/L Potassium 3.7 (3.5-5.1) mmol/L Chloride 100 (98-107) mmol/L Carbon Dioxide 27 (22-30) mmol/L Anion Gap 12 mmol/L BUN 14 (7-17) mg/dL Creatinine 0.59 (0.52-1.04) mg/dL Est GFR (CKD-EPI)AfAm >90 (>60 ml/min/1.73 sqM) Est GFR (CKD-EPI)NonAf >90 (>60 ml/min/1.73 sqM) Glucose 141 H (74-99) mg/dL Calcium 10.0 (8.4-10.2) mg/dL Magnesium 2.2 (1.6-2.3) mg/dL Total Bilirubin 0.7 (0.2-1.3) mg/dL AST 30 (14-36) U/L ALT 23 (4-34) U/L Alkaline Phosphatase 103 (38-126) U/L Troponin I (0.000-0.034) ng/mL Total Protein 8.5 H (6.3-8.2) g/dL Albumin 5.0 (3.5-5.0) g/dL TSH 2.770 (0.465-4.680) mIU/L Free T4 1.15 (0.78-2.19) ng/dL Free T3 pg/mL 3.8 (2.8-5.3) pg/ml 07/08/20 Range/Units 15:42 WBC (3.8-10.6) k/uL RBC (3.80-5.40) m/uL Hgb (11.4-16.0) gm/dL Hct (34.0-46.0) % MCV (80.0-100.0) fL MCH (25.0-35.0) pg MCHC (31.0-37.0) g/dL RDW (11.5-15.5) % Plt Count (150-450) k/uL Neutrophils % % Lymphocytes % % Monocytes % % Eosinophils % % Basophils % % Neutrophils # (1.3-7.7) k/uL Lymphocytes # (1.0-4.8) k/uL Monocytes # (0-1.0) k/uL Eosinophils # (0-0.7) k/uL Basophils # (0-0.2) k/uL PT (9.0-12.0) sec INR (<1.2) APTT (22.0-30.0) sec Sodium (137-145) mmol/L Potassium (3.5-5.1) mmol/L Chloride (98-107) mmol/L Carbon Dioxide (22-30) mmol/L Anion Gap mmol/L BUN (7-17) mg/dL Creatinine (0.52-1.04) mg/dL Est GFR (CKD-EPI)AfAm (>60 ml/min/1.73 sqM) Est GFR (CKD-EPI)NonAf (>60 ml/min/1.73 sqM) Glucose (74-99) mg/dL Calcium (8.4-10.2) mg/dL Magnesium (1.6-2.3) mg/dL Total Bilirubin (0.2-1.3) mg/dL AST (14-36) U/L ALT (4-34) U/L Alkaline Phosphatase (38-126) U/L Troponin I <0.012 (0.000-0.034) ng/mL Total Protein (6.3-8.2) g/dL Albumin (3.5-5.0) g/dL TSH (0.465-4.680) mIU/L Free T4 (0.78-2.19) ng/dL Free T3 pg/mL (2.8-5.3) pg/ml - Radiology Data Radiology results: image reviewed (Chest x-ray shows no acute) Disposition Clinical Impression: Atrial fibrillation with RVR Disposition: ADMITTED IP TO THIS HOSP Is patient prescribed a controlled substance at d/c from ED?: No Referrals: Tod Hutchins MD [Primary Care Provider] - 1-2 days Decision Time: 17:00
[2020-07-08 15:50] LABS: Basophils % (A) 1 %; Eosinophils # (A) 0.2 k/uL (0-0.7); Eosinophils % (A) 3 %; HCT 44.8 % (34.0-46.0); HGB 14.5 gm/dL (11.4-16.0); Lymphocytes # (A) 1.8 k/uL (1.0-4.8); Lymphocytes % (A) 25 %; MCH 29.1 pg (25.0-35.0); MCHC 32.4 g/dL (31.0-37.0); MCV 89.6 fL (80.0-100.0); Monocytes # (A) 0.4 k/uL (0-1.0); Monocytes % (A) 6 %; Neutrophils # (A) 4.5 k/uL (1.3-7.7); Neutrophils % (A) 63 %; Platelet Count 340 k/uL (150-450); RDW 14.1 % (11.5-15.5); WBC 7.1 k/uL (3.8-10.6)
[2020-07-08 15:58] LABS: INR 0.9 (<1.2); Partial Thromboplastin Time 25.4 sec (22.0-30.0); Prothrombin Time 9.8 sec (9.0-12.0)
[2020-07-08 15:59] LABS: ALT 23 U/L (4-34); AST 30 U/L (14-36); African American GFR (CKD) >90 (>60 ml/min/1.73 sqM); Alkaline Phosphatase 103 U/L (38-126); Anion Gap 12 mmol/L; Blood Urea Nitrogen 14 mg/dL (7-17); Carbon Dioxide 27 mmol/L (22-30); Chloride 100 mmol/L (98-107); Glucose 141 mg/dL (74-99); Magnesium 2.2 mg/dL (1.6-2.3); Non-African American GFR(CKD) >90 (>60 ml/min/1.73 sqM); Potassium 3.7 mmol/L (3.5-5.1); Sodium 139 mmol/L (137-145); Total Bilirubin 0.7 mg/dL (0.2-1.3); Total Protein 8.5 g/dL (6.3-8.2)
--- NOTE | 2020-07-08 16:14 | XR ---
EXAMINATION TYPE: XR chest 2V DATE OF EXAM: 07/08/2020 COMPARISON: 10/08/2019 HISTORY: Shortness of breath TECHNIQUE: Frontal and lateral views of the chest are obtained. FINDINGS: Scattered senescent parenchymal changes noted. Hyperinflation compatible with COPD. No evidence for infiltrate. No evidence for atelectasis. Heart size is stable. Mediastinal structures are stable and grossly unremarkable. No evidence for hilar prominence. Degenerative changes dorsal spine. IMPRESSION: 1. No evidence for acute pulmonary disease.
[2020-07-08 16:16] LABS: T4, Free (Free Thyroxine) 1.15 ng/dL (0.78-2.19)
[2020-07-08] MEDS ORDERED: ASPIRIN 81 MG PO STA (17:00)
[2020-07-08] MEDS ORDERED: NITROGLYCERIN SL TABS 0.4 MG TAB SUBLINGUAL PRN (17:00)
--- NOTE | 2020-07-09 00:23 | P.HPIM ---
History of Present Illness H&P Date: 07/09/20 The patient is a 69-year-old female with a PMH of pernicious anemia who presented to the ED with complaints of palpitations. The patient reports that her symptoms started a few days ago, though gradually worsened. She noted that her symptoms were particularly worse today, at which time she decided to come to the emergency room. She denied associated chest discomfort, shortness of breath, nausea, vomiting, dizziness, or diaphoresis. Reports no prior history of palpitations or any other cardiac issues. Reports no change in her excess tolerance and denied orthopnea or PND. In the emergency room, the initial EKG on presentation revealed A. fib at 144 bpm with T-wave inversions inferiorly. Subsequent EKG revealed conversion to sinus rhythm with APCs at 94 bpm. Chest x-ray was unremarkable. Laboratory evaluation revealed a troponin less than 0.012, TSH 2.7, free T4 1.15, free T3 3.8, and glucose 141. Past Medical History Past Medical History: Blood Disorder, Eye Disorder, GERD/Reflux, Thyroid Disorder Additional Past Medical History / Comment(s): Pernicious Anemia genetic type; hx fx lt wrist/hand. hypothyroid. History of Any Multi-Drug Resistant Organisms: None Reported Past Surgical History: Cholecystectomy, Hysterectomy, Orthopedic Surgery, Tonsillectomy Additional Past Surgical History / Comment(s): left knee x2, sinus, scleral [place] surgery, ORIF lt wrist (10-14-16). Colonoscopy, EGD's Past Anesthesia/Blood Transfusion Reactions: Motion Sickness, Postoperative Nausea & Vomiting (PONV) Additional Past Anesthesia/Blood Transfusion Reaction / Comment(s): no blood transfusions. Past Psychological History: No Psychological Hx Reported Smoking Status: Never smoker Past Alcohol Use History: None Reported Past Drug Use History: None Reported - Past Family History Mother Family Medical History: Deep Vein Thrombosis (DVT) Medications and Allergies Home Medications Medication Instructions Recorded Confirmed Type Cyanocobalamin [Vitamin B-12] 250 mcg SQ Q14D 08/03/15 07/08/20 History Sucralfate [Carafate] 1 gm PO QID PRN 08/03/15 07/08/20 History Thyroid,Pork [[place] Thyroid] 15 mg PO DAILY 08/03/15 07/08/20 History Aspirin 81 mg PO Q48H 08/11/17 07/08/20 History Calcium Citrate/Vitamin D3 1 tab PO BID 08/11/17 07/08/20 History [Calcitrate + Vit D Caplet] Multivitamins, Thera [Multivitamin 1 tab PO DAILY 08/11/17 07/08/20 History (formulary)] [place]-3 Fatty Acids/Fish Oil [Fish 1 tab PO DAILY 08/11/17 07/08/20 History Oil 1,000 mg Softgel] Vits A,C,E/Lutein/Minerals 1 each PO BID 08/11/17 07/08/20 History [Ocuvite with Lutein Tablet] Ascorbic Acid [Vitamin C] 1,000 mg PO DAILY 07/08/20 07/08/20 History Glucosamine/MSM/Chrond/D3/Bosw 1 tab PO DAILY 07/08/20 07/08/20 History [Ycnilxcptvb-[id number]-AIT-D3 Cplt] Allergies Allergy/AdvReac Type Severity Reaction Status Date / Time codeine Allergy Rash/Hives Verified 07/08/20 17:35 meperidine HCl [From Demerol] Allergy Rash/Hives Verified 07/08/20 17:35 Penicillins Allergy Rash/Hives Verified 07/08/20 17:35 alcohol AdvReac Severe Flushing Verified 07/08/20 17:35 Physical Exam Vitals: Vital Signs Temp Pulse Pulse Resp BP BP Pulse Ox 07/08/20 17:49 97.9 F 85 16 152/77 99 07/08/20 17:25 98.1 F 07/08/20 17:00 83 16 141/69 99 07/08/20 16:47 83 16 141/69 99 07/08/20 16:01 96 16 07/08/20 15:20 138 H 18 166/83 99 07/08/20 15:00 98.0 F 166 H 20 199/115 98 Intake and Output 07/08/20 07/08/20 07/08/20 06:59 14:59 22:59 Other: Weight 78.018 kg General: non toxic, no distress, appears at stated age, overweight Derm: no unusual rashes/lesions no unusual ecchymoses, warm, dry Head: atraumatic, normocephalic, symmetric Eyes: EOMI, no lid lag, anicteric sclera, pupils equal round reactive to light ENT: Nose and ears atraumatic, no thrush, no pharyngeal erythema Neck: No thyromegaly, no cervical lymphadenopathy, trachea midline, supple Mouth: no lip lesion, mucus membranes moist Cardiovascular: S1S2 reg, no murmur, positive posterior tibial pulse bilateral, no edema, capillary refill less than 2 seconds Lungs: CTA bilateral, no rhonchi, no rales , no accessory muscle use Abdominal: soft, nontender to palpation, no guarding, no appreciable organomegaly, normal bowel sounds Ext: no gross muscle atrophy, muscle strength 5 out of 5 in all 4 extremities grossly, no contractures, Neuro: CN II-XI grossly intact, light touch intact all 4 extremities, finger to nose within normal limits, Psych: Alert, oriented, appropriate affect Results CBC & Chem 7: 07/08/20 15:42 07/08/20 15:42 Labs: Abnormal Lab Results - Last 24 Hours (Table) 07/08/20 Range/Units 15:42 Glucose 141 H (74-99) mg/dL Total Protein 8.5 H (6.3-8.2) g/dL Thrombosis Risk Factor Assmnt - Choose All That Apply Any of the Below Risk Factors Present?: Yes Each Factor Represents 1 point: Obesity (BMI >25) Other Risk Factors: Yes Each Risk Factor Represents 2 Points: Age 61-74 years Other congenital or acquired thrombophilia - If yes, enter type in comment: No Thrombosis Risk Factor Assessment Total Risk Factor Score: 3 Thrombosis Risk Factor Assessment Level: Moderate Risk Assessment and Plan Plan: A. fib with RVR newly diagnosed -Obtain echocardiogram -Continue with Cardizem infusion -Lovenox pending Echocardiogram -TSH within normal limits -Cardiology consult DVT prophylaxis -Lovenox The patient is admitted with an anticipated less than 2 midnight stay for evaluation of Afib with RVR CODE STATUS: Full Code Discussed with: Patient Anticipated discharge date: 07/[address]: Home A total of 35 minutes was spent on the care of this complex patient more than 50% of the time was spent in counseling and care coordination.
[2020-07-09] MEDS ORDERED: ENOXAPARIN 80 MG/0.8 ML SYRINGE SQ SCH (00:30)
[2020-07-09] MEDS ORDERED: ENOXAPARIN 80 MG/0.8 ML SYRINGE SQ ONE (00:45)
[2020-07-09 05:30] LABS: Cholesterol 300 mg/dL (<200); HDL Cholesterol 67 mg/dL (40-60); LDL Cholesterol,Calculated 196 mg/dL (0-99); Triglycerides 185 mg/dL (<150)
[2020-07-09 05:35] VITALS: BP 127/75; RESP 16
[2020-07-09 08:02] VITALS: PULSE 78; TEMP 98.1
[2020-07-09] MEDS ORDERED: APIXABAN 5 MG TAB PO SCH (09:00)
[2020-07-09] MEDS ORDERED: ASPIRIN 325 MG TAB PO SCH (09:00)
[2020-07-09] MEDS ORDERED: ATORVASTATIN 20 MG TAB PO SCH (09:00)
[2020-07-09] MEDS ORDERED: METOPROLOL TARTRATE 25 MG TAB PO SCH (09:00)
--- NOTE | 2020-07-09 09:44 | ECHOF ---
Referral Reason:a fib MEASUREMENTS -------- HEIGHT: 170.2 cm WEIGHT: 78.0 kg BP: 127/75 RVIDd: 3.9 cm (< 3.3) IVSd: 1.5 cm (0.6 - 1.1) LVIDd: 3.3 cm (3.9 - 5.3) LVPWd: 1.7 cm (0.6 - 1.1) IVSs: 1.9 cm LVIDs: 2.1 cm LVPWs: 1.5 cm LAESV Index (A-L): 25.86 ml/m Ao Diam: 3.4 cm (2.0 - 3.7) AV Cusp: 1.6 cm (1.5 - 2.6) MV EXCURSION: 14.577 mm (> 18.000) MV EF SLOPE: 64 mm/s (70 - 150) EPSS: 0.5 cm MV E Juan: 0.99 m/s MV DecT: 226 ms MV A Juan: 1.20 m/s MV E/A Ratio: 0.83 RAP: 5.00 mmHg RVSP: 38.03 mmHg FINDINGS -------- Sinus rhythm. This was a technically adequate study. The left ventricular size is normal. There is moderate concentric left ventricular hypertrophy. O verall left ventricular systolic function is normal with, an EF between 55 - 60 %. The diastolic fi lling pattern is normal for the age of the patient 11.44. The right ventricle is moderately enlarged. Normal LA size by volume 22+/-6 ml/m2. The right atrium is mildly enlarged. Interatrial and interventricular septum intact. There is mild aortic valve sclerosis. There is no evidence of aortic regurgitation. There is no e vidence of aortic stenosis. Mild mitral annular calcification present. Mild mitral regurgitation is present. Moderate tricuspid regurgitation present. There is mild pulmonary hypertension. The right ventric ular systolic pressure, as measured by Doppler, is 38.03mmHg. There is no pulmonic regurgitation present. The aortic root size is normal. Normal inferior vena cava with normal inspiratory collapse consistent with estimated right atrial pre ssure of 5 mmHg. There is no pericardial effusion. CONCLUSIONS -------- 1. There is moderate concentric left ventricular hypertrophy. 2. Overall left ventricular systolic function is normal with, an EF between 55 - 60 %. 3. The right ventricle is moderately enlarged. 4. Normal LA size by volume 22+/-6 ml/m2. 5. The right atrium is mildly enlarged. 6. There is mild aortic valve sclerosis. 7. Mild mitral regurgitation is present. 8. Moderate tricuspid regurgitation present. 9. There is mild pulmonary hypertension. 10. There is no pericardial effusion. DEVELOPMENT GEOLOGIST: Sarah Beth Marcano RDCS
--- NOTE | 2020-07-09 10:10 | CONS ---
CONSULTATION Ms. Leiva is a 69-year-old female with followed by and prior to that Dr. Moody, has no cardiac history who had an upper respiratory infection recently with some cough and yellowish sputum. She presented to the emergency room with symptoms of palpitation and pounding in the chest as well as worsening dyspnea. Came in she was noted to be tachycardic with what appears to be atrial flutter with 2:1 conduction. She is back in sinus mechanism at this time. Patient denies any prior cardiac history. She is usually active physically, walks on a daily basis without difficulty. Denies any dizziness or palpitation. On a regular basis, has no PND, orthopnea, or peripheral edema. She has no history of arrhythmia, congestive heart failure or myocardial infarction. She has a history of hyperlipidemia, but has been intolerant to Crestor with a joint pain. She is a nonsmoker, nondiabetic and no history of hypertension in the past. REVIEW OF SYSTEMS: RESPIRATORY SYSTEM: She had recent cough. The episode of dyspnea recently. GI SYSTEM: No recent GI bleeding, no peptic ulcer disease. SYSTEM: No dysuria or hematuria. NERVOUS SYSTEM: No stroke or seizure. PHYSICAL EXAMINATION: She is a 69-year-old female, alert, oriented, in no apparent distress. Blood pressure 127/70 with a heart rate in the 70s. HEAD: Normocephalic. EYES; Sclerae nonicteric. NECK: Good upstroke, no bruit, no jugular venous distention. LUNGS: Clear to auscultation. HEART: Regular rate and rhythm, S1, S2. No S3. No S4. No murmur or rub. ABDOMEN: Soft, nontender, positive bowel sounds, no organomegaly. EXTREMITIES: No edema, intact pulses. LAB DATA: Revealed troponin less than 0.012 for 3 samples, cholesterol of 300, LDL of 196, TSH of 2.7, potassium 3.7, BUN and creatinine 14 and 0.59, hemoglobin 14.5. Initial EKG revealed what appears to be atrial flutter with 2:1 conduction with a rate of 144. Subsequent EKG revealed a sinus mechanism with rare PACs and nonspecific ST-T wave changes. Chest x-ray shows no acute infiltrate. IMPRESSION: 1. Atrial flutter, paroxysmal, new onset, non diagnosed in the past. His CHADS Vasc 2 score is 2. 2. 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 3. Recent upper respiratory infection. RECOMMENDATION: I will initiate anticoagulation in the form of Eliquis 5 mg twice a day and I will start her on Lopressor 25 mg twice a day. I will also give her a trial of Lipitor 20 mg daily. If she is intolerant, then she may be at a candidate for PCSK9-I injections as an outpatient. We will obtain echocardiogram with Doppler. If there is no significant abnormality, I will expect she should be able to be discharged home today and followed as an outpatient. Thank you for this consult. Will follow with you. MMODL / IJN: [id number] / ANGÉLICA
[2020-07-09] MEDS ORDERED: DOXYCYCLINE 100 MG CAP PO SCH (10:45)
[2020-07-09] MEDS ORDERED: CEFDINIR 300 MG CAP PO SCH (10:45)
--- NOTE | 2020-07-09 11:37 | P.DS ---
Providers Date of admission: 07/08/20 17:00 Expected date of discharge: 07/09/20 Attending physician: Evin Huertas MD Consults: 07/08/20 17:00 Consult Physician Urgent Consulting Provider: Tod Moreira Consult Reason/Comments: a fib w rvr, resolved Do you want consulting provider notified?: Yes Primary care physician: Tod Hutchins MD Hospital Course: Discharge Diagnosis: Paroxysmal Atrial flutter with RVR HLD Bronchitis Pernicious anemia Hypothyroidism Hospital Course: female with a history of pernicious anemia, hypothyroidism, and arthritis who presented to the emergency department with complaints of palpitations. On arrival to the ER she was noted to be in atrial flutter with rapid ventricular response. She converted spontaneously to sinus rhythm. Her laboratory evaluation showed that her TSH was well controlled and free T4. Her Echo showed preserved EF at 55-60%. Her chest x-ray was negative. She was seen by Dr. Moreira of cardiology who recommended metoprolol, eliquis, and lipitor. She has failed Crestor in the past ue to mylagias. She ambulated and HR remained controlled. She was determined stable for discharge home. She has been dealing with a chronic cough for 3 weeks, sinus draingare. Her sputum uis now yellow green, on exam she has yellow pharyngeal exudates. We will treat with 5 days of Cefdinir and doxycycline to monitor for clinical improvement. Patient seen and examined at bedside. Feeling much better. No chest pain, no shortness of breath. No palpitations. She is okay with Eliquis. Risks and benefirts of anticoagulation discussed including CHADS VASc 2. SHe is in agreementwith anticoagulation. She is also okay with a trial of lipitor. Vital signs reviewed and stable. General: non toxic, no distress, appears at stated age Derm: warm, dry Head: atraumatic, normocephalic, symmetric Eyes: EOMI, no lid lag, anicteric sclera Mouth: no lip lesion, mucus membranes moist Cardiovascular: S1S2 reg, no murmur, positive posterior tibial pulse bilateral, Lungs: CTA bilateral, no rhonchi, no rales , no accessory muscle use Abdominal: soft, nontender to palpation, no guarding, no appreciable organomegaly Ext: no gross muscle atrophy, no edema, no contractures Neuro: CN II-XI grossly intact, no focal neuro deficits Psych: Alert, oriented, appropriate affect A total of 25 minutes of time were spent preparing this complex discharge summary . Patient Condition at Discharge: Stable Plan - Discharge Summary Discharge Rx Participant: Yes New Discharge Prescriptions: New Atorvastatin [Lipitor] 20 mg PO DAILY #30 tab Metoprolol Tartrate [Lopressor] 25 mg PO BID #60 tab Cefdinir [Omnicef] 300 mg PO BID #9 cap Doxycycline [Vibramycin] 100 mg PO BID #9 cap Apixaban [Eliquis] 5 mg PO BID #60 tab Continue Cyanocobalamin [Vitamin B-12 Injection] 250 mcg SQ Q14D Thyroid,Pork [[place] Thyroid] 15 mg PO DAILY Sucralfate [Carafate] 1 gm PO QID PRN PRN Reason: gastritis Multivitamins, Thera [Multivitamin (formulary)] 1 tab PO DAILY Aspirin 81 mg PO Q48H Vits A,C,E/Lutein/Minerals [Ocuvite with Lutein Tablet] 1 each PO BID [place]-3 Fatty Acids/Fish Oil [Fish Oil 1,000 mg Softgel] 1 tab PO DAILY Calcium Citrate/Vitamin D3 [Calcitrate + Vit D Caplet] 1 tab PO BID Ascorbic Acid [Vitamin C] 1,000 mg PO DAILY Glucosamine/MSM/Chrond/D3/Bosw [Avdwgiizxyi-Bgemae-LLU-D3 Cplt] 1 tab PO DA ROXY Discharge Medication List Cyanocobalamin [Vitamin B-12 Injection] 250 mcg SQ Q14D 08/03/15 [History] Sucralfate [Carafate] 1 gm PO QID PRN 08/03/15 [History] Thyroid,Pork [[place] Thyroid] 15 mg PO DAILY 08/03/15 [History] Aspirin 81 mg PO Q48H 08/11/17 [History] Calcium Citrate/Vitamin D3 [Calcitrate + Vit D Caplet] 1 tab PO BID 08/11/17 [History] Multivitamins, Thera [Multivitamin (formulary)] 1 tab PO DAILY 08/11/17 [History] [place]-3 Fatty Acids/Fish Oil [Fish Oil 1,000 mg Softgel] 1 tab PO DAILY 08/11/17 [History] Vits A,C,E/Lutein/Minerals [Ocuvite with Lutein Tablet] 1 each PO BID 08/11/17 [History] Ascorbic Acid [Vitamin C] 1,000 mg PO DAILY 07/08/20 [History] Glucosamine/MSM/Chrond/D3/Bosw [Jtegcupxzbb-Njvocy-VYM-D3 Cplt] 1 tab PO DAILY 07/08/20 [History] Apixaban [Eliquis] 5 mg PO BID #60 tab 07/09/20 [Rx] Atorvastatin [Lipitor] 20 mg PO DAILY #30 tab 07/09/20 [Rx] Cefdinir [Omnicef] 300 mg PO BID #9 cap 07/09/20 [Rx] Doxycycline [Vibramycin] 100 mg PO BID #9 cap 07/09/20 [Rx] Metoprolol Tartrate [Lopressor] 25 mg PO BID #60 tab 07/09/20 [Rx] Follow up Appointment(s)/Referral(s): Tod Hutchins MD [Primary Care Provider] - 1-2 days Tod Moreira MD [STAFF PHYSICIAN] - 1 Week Activity/Diet/Wound Care/Special Instructions: Activity: as tolerated Diet: Heart healthy Special Instructions: Check blood pressure once daily and create a log Monitor for signs of blood in stool, urine, easy bruising Discharge Disposition: HOME SELF-CARE
[2020-07-09 13:43] LABS: HCT 40.3 % (34.0-46.0); MCH 29.4 pg (25.0-35.0); MCHC 32.3 g/dL (31.0-37.0); MCV 91.1 fL (80.0-100.0); Mean Platelet Volume 7.3; Platelet Count 285 k/uL (150-450); RBC 4.43 m/uL (3.80-5.40); RDW 14.4 % (11.5-15.5); WBC 7.9 k/uL (3.8-10.6)
[2020-07-09 13:54] LABS: African American GFR (CKD) >90 (>60 ml/min/1.73 sqM); Anion Gap 7 mmol/L; Blood Urea Nitrogen 12 mg/dL (7-17); Calcium 9.3 mg/dL (8.4-10.2); Carbon Dioxide 28 mmol/L (22-30); Chloride 103 mmol/L (98-107); Glucose 157 mg/dL (74-99); Non-African American GFR(CKD) >90 (>60 ml/min/1.73 sqM); Potassium 4.6 mmol/L (3.5-5.1); Sodium 138 mmol/L (137-145)
== END 2020-07-09 13:38 | disposition home or self-care (01) ==
LOC: EC 14:44 → 3NCARDOBS 17:00
PROVIDERS: ADMIT Internal Medicine; ATTEND Internal Medicine
DX: I48.92 Unspecified atrial flutter (principal); J40 Bronchitis, not specified as acute or chronic; E78.5 Hyperlipidemia, unspecified; K21.9 Gastro-esophageal reflux disease without esophagitis; H57.9 Unspecified disorder of eye and adnexa; D51.0 Vitamin B12 deficiency anemia due to intrinsic factor deficiency; E03.9 Hypothyroidism, unspecified; E66.9 Obesity, unspecified; Z68.26 Body mass index [BMI] 26.0-26.9, adult; Z79.890 Hormone replacement therapy; Z79.82 Long term (current) use of aspirin; Z79.899 Other long term (current) drug therapy; Z88.5 Allergy status to narcotic agent; Z88.0 Allergy status to penicillin; Z91.048 Other nonmedicinal substance allergy status; Z87.81 Personal history of (healed) traumatic fracture; Z90.710 Acquired absence of both cervix and uterus; Z90.49 Acquired absence of other specified parts of digestive tract; Z82.49 Family history of ischemic heart disease and other diseases of the circulatory system
CPT/HCPCS: 93005 ×2; 96372; 99285; 36415; 93306; 84439; 84481; 80061; 80053; 80048; 83735; 84443; 84484; 85025; 85027; 85610; 85730; 71046; G0378 ×2; J1650

== ENCOUNTER → 2020-09-15 | Outpatient (CLI) | payer MEDICARE ==
--- NOTE | 2020-09-15 13:39 | MR ---
EXAMINATION TYPE: MR knee RT wo con DATE OF EXAM: 09/15/2020 COMPARISON: Plain film 09/02/2020 HISTORY: Right knee pain. TECHNIQUE: Multiplanar, multisequence imaging of the right knee is performed without IV contrast. FINDINGS: MEDIAL MENISCUS: Anterior and posterior horns are intact without tear. LATERAL MENISCUS: Anterior and posterior horns are intact without tear. CRUCIATE LIGAMENTS: Anterior cruciate ligament appears somewhat attenuated at its distal aspect, ther e may be a ganglion cyst, sagittal image 18, coronal image #15, findings may represent a partial tear , posterior cruciate ligament is intact. Tibial spine causes possible mass effect on the anterior cru ciate ligament distally, coronal image 17. COLLATERAL LIGAMENTS: The medial collateral ligament and lateral collateral ligament complex are inta ct and unremarkable. EXTENSOR MECHANISM: Visualized quadriceps and patellar tendons are intact. EFFUSION: Small joint effusion POPLITEAL CYST: No popliteal/garrett cyst. TRICOMPARTMENT SPACES: Joint space loss is present in the medial compartment, patellofemoral joint. T here is tricompartmental marginal spurring CARTILAGE: Grade 3 to grade IV chondromalacia posterior patella as well as medial compartment. Grade 2 to grade III chondromalacia in the lateral compartment. BONE MARROW SIGNAL: Probable subchondral geode present in the medial femoral condyle as well as media l tibia proximally, some probable reactive marrow signal change present at the level the tibial spine s OTHER: Subcutaneous edema changes are present. IMPRESSION: Osteoarthritis as described. Findings in the anterior cruciate ligament are above.
== END | disposition home or self-care (01) ==
LOC: RADMRIMAIN 11:45
PROVIDERS: ATTEND Orthopaedic Surgery
DX: M17.11 Unilateral primary osteoarthritis, right knee (principal)

== ENCOUNTER → 2020-10-29 | Outpatient (CLI) | payer MEDICARE ==
--- NOTE | 2020-10-30 14:37 | MM ---
Reason for exam: screening (asymptomatic). Last mammogram was performed 1 year and 2 months ago. History: Patient is postmenopausal. Took estrogen for 4 years 4 months beginning at age 54. Taking other hormone for 4 years. Physical Findings: A clinical breast exam by your physician is recommended on an annual basis and results should be correlated with mammographic findings. MG 3D Screening Mammo W/Cad Bilateral CC and MLO view(s) were taken. Prior study comparison: August 21, 2019, bilateral MG 3d screening mammo w/cad. August 20, 2018, left breast MG 3d work up w/cad LT. There are scattered fibroglandular densities. There is chronic nodularity in the left breast. No significant changes when compared with prior studies. ASSESSMENT: Benign, BI-RAD 2 RECOMMENDATION: Routine screening mammogram of both breasts in 1 year.
== END | disposition home or self-care (01) ==
LOC: RADMAMWWP 09:21
PROVIDERS: ATTEND Internal Medicine
DX: Z12.31 Encounter for screening mammogram for malignant neoplasm of breast (principal)
CPT/HCPCS: 77063; 77067

== ENCOUNTER → 2021-04-29 | Outpatient (CLI) | payer MEDICARE ==
[2021-04-29 17:29] LABS: Chol/HDL Ratio 3.8
== END | disposition home or self-care (01) ==
LOC: LABWHC1 08:40
PROVIDERS: ATTEND Internal Medicine Interventional Cardiology
DX: E78.2 Mixed hyperlipidemia (principal)
CPT/HCPCS: 36415; 80061; 84450; 84460

== ENCOUNTER → 2021-07-21 | Outpatient (CLI) | payer MEDICARE ==
[2021-07-21 17:56] LABS: Basophils # (A) 0.04 X 10*3/uL (0.00-0.10); Basophils % (A) 0.5 %; HCT 41.7 % (37.2-46.3); Lymphocytes # (A) 1.61 X 10*3/uL (0.90-5.00); Lymphocytes % (A) 21.4 %; MCHC 31.2 g/dL (32.0-37.0); MCV 89.9 fL (80.0-97.0); Mean Platelet Volume 10.3 fL (9.5-12.2); Monocytes # (A) 0.83 X 10*3/uL (0.20-1.00); Monocytes % (A) 11.1 %; Neutrophils % (A) 62.6 %; Platelet Count 261 X 10*3/uL (140-440); RBC 4.64 X 10*6/uL (4.10-5.20); RDW 15.5 % (11.5-14.5); WBC 7.51 X 10*3/uL (4.50-10.00)
[2021-07-21 19:06] LABS: African American GFR (CKD) 101.9 (60.0-200.0); Albumin 4.5 g/dL (3.8-4.9); Albumin/Globulin Ratio 1.9 (1.60-3.17); Anion Gap 6.6 mmol/L (4.00-12.00); BUN/Creat Ratio 20.51 Ratio (12.00-20.00); Blood Urea Nitrogen 13.7 mg/dL (9.0-27.0); Calcium 9.6 mg/dL (8.7-10.3); Carbon Dioxide 30.6 mmol/L (21.6-31.8); Globulin 2.4 g/dL (1.6-3.3); Non-African American GFR(CKD) 87.9 (60.0-200.0); Potassium 4.7 mmol/L (3.5-5.5); Total Bilirubin 1.2 mg/dL (0.30-1.20); Total Protein 6.9 g/dL (6.2-8.2)
== END | disposition home or self-care (01) ==
LOC: LABWHC1 09:50
PROVIDERS: ATTEND Nurse Practitioner Adult Health
DX: I48.3 Typical atrial flutter (principal); E03.9 Hypothyroidism, unspecified
CPT/HCPCS: 36415; 80053; 84443; 85025

== ENCOUNTER → 2021-09-04 | Outpatient (CLI) | payer MEDICARE ==
[2021-09-04 10:05] LABS: HCT 41.9 % (34.0-46.0); HGB 13.6 gm/dL (11.4-16.0); MCH 30.2 pg (25.0-35.0); MCHC 32.4 g/dL (31.0-37.0); MCV 93.1 fL (80.0-100.0); Mean Platelet Volume 7.5; Platelet Count 260 k/uL (150-450); RBC 4.51 m/uL (3.80-5.40); RDW 14.9 % (11.5-15.5); WBC 6.5 k/uL (3.8-10.6)
[2021-09-04 10:18] LABS: African American GFR (CKD) >90 (>60 ml/min/1.73 sqM); Anion Gap 8 mmol/L; Blood Urea Nitrogen 11 mg/dL (7-17); Carbon Dioxide 27 mmol/L (22-30); Chloride 104 mmol/L (98-107); Magnesium 2.1 mg/dL (1.6-2.3); Non-African American GFR(CKD) 88 (>60 ml/min/1.73 sqM); Sodium 139 mmol/L (137-145)
== END | disposition home or self-care (01) ==
LOC: LABPAT 09:45
PROVIDERS: ATTEND Internal Medicine Clinical Cardiac Electrophysiology
DX: Z01.812 Encounter for preprocedural laboratory examination (principal); I48.19 Other persistent atrial fibrillation
CPT/HCPCS: 80051; 82565; 83735; 84520; 85027; 36415; U0003; C9803

== ENCOUNTER 2021-09-07 07:31 | Day surgery (SDC) | payer MEDICARE ==
[2021-09-06 09:21] VITALS: BMI 26.6
[~2021-09-07 07:31] MED LIST changes: -LIDOCAINE 1% 20 ML VIAL (10MG/ML) FOR IV START INTRADERMA PRN; +SODIUM CHLORIDE 0.9% 1,000 ML IV SCH
[2021-09-07] MEDS ORDERED: SODIUM CHLORIDE 0.9% 1,000 ML IV ONE ×2 (07:47→12:15)
[2021-09-07] MEDS ORDERED: PROPOFOL 10 MG/ML 20 ML VIAL IV ONE (08:41)
[2021-09-07] MEDS ORDERED: MIDAZOLAM 2 MG/2 ML VIAL ONE (08:41)
[2021-09-07] MEDS ORDERED: PHENYLEPHRINE-0.9% NACL SYG 1,000 MCG/10 ML SYRINGE ONE (08:41)
[2021-09-07] MEDS ORDERED: LIDOCAINE 1% INJ 10MG/ML (20 ML MDV) ONE ×2 (08:41→08:53)
[2021-09-07] MEDS ORDERED: ONDANSETRON 4 MG/2 ML VIAL ONE ×2 (08:41→12:49)
[2021-09-07] MEDS ORDERED: SUCCINYLCHOLINE CHLORIDE 100 MG/5 ML SYR IV ONE (08:41)
[2021-09-07] MEDS ORDERED: .fentaNYL (PF) 50 MCG/ML 2 ML AMP ONE (08:41)
[2021-09-07] MEDS ORDERED: HEPARIN SOD,PORK IN 0.45% NACL 25,000 UNIT in 0.45% NACL 1 250ML.BAG IV ONE (09:22)
[2021-09-07] MEDS ORDERED: LIDOCAINE 1% INJ 10MG/ML (20 ML MDV) SQ ONE (09:22)
[2021-09-07] MEDS ORDERED: IOPAMIDOL-370 50ML BTL INJ ONE (10:34)
[2021-09-07] MEDS ORDERED: IOPAMIDOL-370 100ML BTL INJ ONE (11:26)
[2021-09-07] MEDS ORDERED: ACETAMINOPHEN TAB 325 MG TAB PO PRN (11:56)
[2021-09-07] MEDS ORDERED: SUCRALFATE 1 GM TAB PO PRN (11:57)
[2021-09-07 12:01] VITALS: TEMP 97
--- NOTE | 2021-09-07 12:05 | P.EPPROC ---
- EP Procedure Note Electrophysiology Procedure Note: Diagnosis Paroxysmal atrial fibrillation, symptomatic, recurrent Procedure details Patient underwent diagnostic EP study General anesthesia was performed [place] catheter an endoscope placed in the esophagus Venous access was obtained in the right left femoral veins Long sheath placed in the IVC. Intracardiac echo and coronary sinus catheter placed in the IVC The guidewire to a tortuous without in the chest In the catheters were placed in the chest and right atrial mapping His bundle m apping and RV and CS mapping was attempted No cardiac signals were noted Right upper extremity venogram performed Venography of the IVC and the large venous structure in the chest performed It appeared that the IVC would continue up the chest as if it further and the Xigris vein and then communicate with the SVC above This was confirmed with venography of the Xigris vein and the right upper extr emity venogram The right subclavian and SVC appeared normal. The right atrium was well opacified as well as the right ventricle with injections in the SVC area The SVC also communicated with the azygous vein However the IVC continued as the azygous vein into the chest and did not communicate with the cardiac chambers directly Intracardiac echo was performed and the relationships between the right atrium and the left atrium and the right ventricle was identified Tricuspid valve was identified but the intracardiac echo catheter was within the azygous vein not in the right atrial chamber Therefore the coronary sinus, tricuspid valve, right ventricle and interatrial septum could not be accessed. All catheters were is were removed. 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
[2021-09-07 12:16] VITALS: RESP 16
[2021-09-07] MEDS ORDERED: ACETAMINOPHEN IV (For NPO) 1,000 MG in EMPTY BAG 1 BAG IVPB ONE (14:00)
--- NOTE | 2021-09-07 14:34 | CT ---
EXAMINATION TYPE: CT angio thor/abd pel aorta DATE OF EXAM: 09/07/2021 COMPARISON: None HISTORY: Abnormal IVC CT DLP: 1385.7 mGycm Automated exposure control for dose reduction was used. CONTRAST: Performed with IV Contrast, patient injected with 100 mL of Isovue 370. FINDINGS: The azygos vein is dilated and extends inferiorly into the IVC. 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 There is subsegmental bilateral areas of consolidation. No pneumothorax or pleural effusion. Atherosc lerotic change of the aorta. There is a hiatal hernia. There is a hypodense lesion involving the lower pole left kidney most likely related to phase cysts. Postcholecystectomy changes are noted. Adrenal glands normal morphology. Liver and spleen of normal m orphology. Bowel gas pattern nonspecific. Atherosclerotic change aorta. No free fluid. Hypertrophic a nd degenerative changes of the spine. Grade 1 anterolisthesis L2 on L3 with multilevel facet arthropa thy. Left adrenal gland thickening correlate for hyperplasia. IMPRESSION: 1. 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 Note is made hepatic segment of the IVC are not seen with certainty. 2. Bilateral areas of subsegmental consolidation atelectasis favored over pneumonia correlate clinica lly.
--- NOTE | 2021-09-07 16:03 | P.PN ---
Progress Note - Text Discussed CT angiogram results with Dr. 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
--- NOTE | 2021-09-07 16:09 | P.PRLE ---
RE: LeivaLakshmi Dear Dr. Crain Mrs. Leiva underwent an attempt at an EP study and cryoablation the pulmonary veins first to buttock paroxysmal atrial fibrillation line however intr aoperatively we found that IVC was communicating with the azygous vein was then would drain into the SVC There was no communication of the IVC with the right atrial cavity directly and therefore no ablation could be performed We performed a CT angiography chest and abdomen to confirm her venous anatomy Discussed CT angiogram results with Dr. 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 There is no access into the right atrium via the femoral veins She is completely intolerant of flecainide I will start with metoprolol succinate 50 mrem by mouth daily This may be increased 100 mg by mouth daily Antiarrhythmic options include Propafenone Multaq Disopyramide Sotalol Pulmonary vein isolation with RF Y the SVC without, but stability of catheter placement is available initial Epicardial pulmonary vein isolation, thoracoscopic Dual-chamber pacemaker and AV node ablation should be the very last option Thank you for entrusting me with the care of the patient Warm regards Sincerely Wolf Grimes
[2021-09-07] MEDS ORDERED: RIVAROXABAN 20 MG TAB PO SCH (17:30)
[2021-09-07 18:51] VITALS: BP 121/68
[2021-09-07 18:55] VITALS: PULSE 76
== END 2021-09-07 18:08 | disposition home or self-care (01) ==
LOC: CATHEP 07:31
PROVIDERS: ATTEND Internal Medicine Clinical Cardiac Electrophysiology
DX: I48.0 Paroxysmal atrial fibrillation (principal); E78.5 Hyperlipidemia, unspecified; I10 Essential (primary) hypertension; M19.90 Unspecified osteoarthritis, unspecified site; K44.9 Diaphragmatic hernia without obstruction or gangrene; K21.9 Gastro-esophageal reflux disease without esophagitis; D51.0 Vitamin B12 deficiency anemia due to intrinsic factor deficiency; Z90.49 Acquired absence of other specified parts of digestive tract; Z98.890 Other specified postprocedural states; Z79.01 Long term (current) use of anticoagulants; Z79.890 Hormone replacement therapy; Z79.899 Other long term (current) drug therapy; Z88.5 Allergy status to narcotic agent; Z88.0 Allergy status to penicillin
CPT/HCPCS: 93662; 93620; 75820; 71275; 74174; C1769 ×4; C1894; C1760; C1730; C1759; C1893; C1766; J2250; J2405; J2001; J3010; J2370; J0330; J2704; Q9967 ×2

== ENCOUNTER → 2021-10-05 | Outpatient (CLI) | payer MEDICARE ==
--- NOTE | 2021-10-05 10:36 | XR ---
EXAMINATION TYPE: XR chest 2V DATE OF EXAM: 10/05/2021 COMPARISON: 07/08/2020 TECHNIQUE: PA and lateral views submitted. HISTORY: Cough FINDINGS: The lungs are clear and there is no pneumothorax, pleural effusion, or focal pneumonia. Arthropathy of the shoulders with diffuse osteopenia. Degenerative change the spine. Hyperinflation suggests [employer] D. No overt failure. Heart size normal and stable. 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 IMPRESSION: 1. No acute process. Correlate for COPD.
== END | disposition home or self-care (01) ==
LOC: RADXRMAIN 10:05
PROVIDERS: ATTEND Internal Medicine
DX: R05.9 Cough, unspecified (principal)
CPT/HCPCS: 71046

== ENCOUNTER → 2021-11-18 | Outpatient (CLI) | payer MEDICARE ==
--- NOTE | 2021-11-22 09:31 | MM ---
Reason for exam: screening (asymptomatic). Last mammogram was performed 1 year and 1 month ago. History: Patient is postmenopausal. Took estrogen for 4 years 4 months beginning at age 54. Taking other hormone for 4 years. Physical Findings: A clinical breast exam by your physician is recommended on an annual basis and results should be correlated with mammographic findings. MG 3D Screening Mammo W/Cad Bilateral CC and MLO view(s) were taken. Prior study comparison: October 29, 2020, bilateral MG 3d screening mammo w/cad. August 21, 2019, bilateral MG 3d screening mammo w/cad. Focal asymmetry right breast, stable. No significant changes when compared with prior studies. ASSESSMENT: Benign, BI-RAD 2 RECOMMENDATION: Routine screening mammogram of both breasts in 1 year.
== END | disposition home or self-care (01) ==
LOC: RADMAMWWP 09:00
PROVIDERS: ATTEND Internal Medicine
DX: Z12.31 Encounter for screening mammogram for malignant neoplasm of breast (principal)
CPT/HCPCS: 77063; 77067

== ENCOUNTER → 2022-03-03 | Outpatient (CLI) | payer MEDICARE ==
[2022-03-03 10:54] LABS: ALT 22 U/L (8-44); AST 21 U/L (13-35); African American GFR (CKD) 102.1 (60.0-200.0); Albumin 4.3 g/dL (3.8-4.9); Alkaline Phosphatase 80 U/L (41-126); BUN/Creat Ratio 14.98 Ratio (12.00-20.00); Blood Urea Nitrogen 9.7 mg/dL (9.0-27.0); Calcium 9.6 mg/dL (8.7-10.3); Carbon Dioxide 27.5 mmol/L (20.0-27.5); Chloride 102 mmol/L (96-109); Chol/HDL Ratio 3.66 Ratio; Globulin 2.4 g/dL (1.6-3.3); Glucose 98 mg/dL (70-110); LDL Cholesterol,Calculated 136.9 mg/dL (0.0-131.0); Non-African American GFR(CKD) 88.1 (60.0-200.0); Potassium 4.8 mmol/L (3.5-5.5); Sodium 140 mmol/L (135-145); Total Protein 6.8 g/dL (6.2-8.2)
== END | disposition home or self-care (01) ==
LOC: LABWHC1 07:39
PROVIDERS: ATTEND Nurse Practitioner Adult Health
DX: E78.2 Mixed hyperlipidemia (principal)
CPT/HCPCS: 36415; 80053; 80061

== ENCOUNTER → 2023-02-17 | Outpatient (CLI) | payer MEDICARE ==
[2023-02-17 15:12] LABS: Basophils # (A) 0.03 X 10*3/uL (0.00-0.10); Basophils % (A) 0.6 %; Eosinophils # (A) 0.14 X 10*3/uL (0.04-0.35); Eosinophils % (A) 2.6 %; HCT 39.9 % (37.2-46.3); HGB 12.7 g/dL (12.0-15.0); Immature Grans, Automated 0.2 %; Lymphocytes # (A) 1.57 X 10*3/uL (0.90-5.00); Lymphocytes % (A) 29.5 %; MCH 28.3 pg (27.0-32.0); MCHC 31.8 g/dL (32.0-37.0); MCV 88.9 fL (80.0-97.0); Mean Platelet Volume 10.5 fL (9.5-12.2); Monocytes # (A) 0.62 X 10*3/uL (0.20-1.00); Monocytes % (A) 11.7 %; NRBC Per 100 WBC 0 /100 WBCS (0.0-0.0); Neutrophils # (A) 2.95 X 10*3/uL (1.80-7.70); Neutrophils % (A) 55.4 %; Platelet Count 226 X 10*3/uL (140-440); RBC 4.49 X 10*6/uL (4.10-5.20); RDW 15.9 % (11.5-14.5); WBC 5.32 X 10*3/uL (4.50-10.00)
[2023-02-17 16:23] LABS: % Iron Saturation 35.87 (12.00-45.00); ALT 28 U/L (8-44); AST 23 U/L (13-35); Albumin 4.3 g/dL (3.8-4.9); Albumin/Globulin Ratio 1.87 (1.60-3.17); Alkaline Phosphatase 64 U/L (41-126); BUN/Creat Ratio 17.66 Ratio (12.00-20.00); Blood Urea Nitrogen 11.6 mg/dL (9.0-27.0); Calcium 9.1 mg/dL (8.7-10.3); Carbon Dioxide 24.4 mmol/L (20.0-27.5); Chloride 100 mmol/L (96-109); Chol/HDL Ratio 3.09 Ratio; Ferritin 79.5 ng/mL (10.0-291.0); Globulin 2.3 g/dL (1.6-3.3); Glucose 100 mg/dL (70-110); Iron 118 ug/dL (50-170); LDL Cholesterol,Calculated 105.6 mg/dL (0.0-131.0); Non-African American GFR(CKD) 87.2 (60.0-200.0); Potassium 4.4 mmol/L (3.5-5.5); Sodium 138 mmol/L (135-145); Total Iron Binding Capacity 329 ug/dL (228-460); Total Protein 6.6 g/dL (6.2-8.2); Uric Acid 3.7 mg/dL (2.9-7.7); VLDL Calculation 16.78 mg/dL (5.00-40.00)
[2023-02-17 16:58] LABS: Appearance,Urine Clear (Clear); Bilirubin,Urine Negative (Negative); Blood,Urine Negative (Negative); Color,Urine Yellow (Yellow); Ketones,Urine Negative (Negative); Nitrite,Urine Negative (Negative); PH, Urine 6.5 (5.0-8.0); Specific Gravity,Urine 1.008 (1.001-1.030); Urobilinogen,Urine 0.2 (0.2,1.0)
== END | disposition home or self-care (01) ==
LOC: LABWHC1 09:50
PROVIDERS: ATTEND Nurse Practitioner Adult Health
DX: I48.0 Paroxysmal atrial fibrillation (principal); E78.2 Mixed hyperlipidemia; M81.0 Age-related osteoporosis without current pathological fracture; D51.0 Vitamin B12 deficiency anemia due to intrinsic factor deficiency; M13.80 Other specified arthritis, unspecified site; E03.9 Hypothyroidism, unspecified
CPT/HCPCS: 36415; 80053; 80061; 81003; 82306; 82607; 82728; 82746; 83036; 83540; 83550; 84443; 84550; 85025; 86316

== ENCOUNTER → 2023-11-01 | Outpatient (CLI) | payer MEDICARE ==
--- NOTE | 2023-11-01 10:31 | XR ---
EXAM TYPE: LUMBAR SPINE X RAY SERIES COMPARISON: NONE HISTORY: Pain TECHNIQUE: 4 views are submitted. FINDINGS: Alignment is anatomic. The pedicles are intact. The transverse processes are intact. There is diff use osteopenia with multilevel degenerative disc disease. Anterolisthesis of L4 on L5 and L2-L3. There is facet arthropathy. Foraminal protrusion at L5-S1. Vas cular calcifications noted. SI joint arthropathy IMPRESSION: 1. Diffuse osteopenia with multilevel anterolisthesis and degenerative disc disease. Suspect foramina l encroachment L5-S1..
--- NOTE | 2023-11-01 10:32 | XR ---
EXAMINATION TYPE: XR thoracic spine 2V DATE OF EXAM: 11/01/2023 COMPARISON: NONE HISTORY: Pain TECHNIQUE: 3 views submitted FINDINGS: Alignment is anatomic. There is no compression deformities. Diffuse osteopenia with multilevel mild degenerative disc disease. Incidental note made of degenerative disc disease involving the mid and lo wer cervical spine. Cardiomegaly with atherosclerotic change aorta. Surgical clips in the abdomen. IMPRESSION: 1. Multilevel degenerative disc disease.
[2023-11-01 15:44] LABS: Basophils # (A) 0.04 X 10*3/uL (0.00-0.10); Basophils % (A) 0.6 %; Eosinophils # (A) 0.29 X 10*3/uL (0.04-0.35); Eosinophils % (A) 4.7 %; HCT 41.1 % (37.2-46.3); Lymphocytes # (A) 1.62 X 10*3/uL (0.90-5.00); MCHC 31.6 g/dL (32.0-37.0); MCV 88.6 FL (80.0-97.0); Monocytes # (A) 0.67 X 10*3/uL (0.20-1.00); Monocytes % (A) 10.8 %; NRBC Per 100 WBC 0 X 10*3/uL (0.00-0.01); Neutrophils # (A) 3.59 X 10*3/uL (1.80-7.70); Neutrophils % (A) 57.6 %; Platelet Count 242 X 10*3/uL (140-440); RBC 4.64 X 10*6/uL (4.10-5.20); RDW 16.2 % (11.5-14.5); WBC 6.23 X 10*3/uL (4.50-10.00)
[2023-11-01 16:33] LABS: ALT 24 U/L (8-44); AST 27 U/L (13-35); Albumin 4.5 g/dL (3.8-4.9); Albumin/Globulin Ratio 1.61 Ratio (1.60-3.17); Alkaline Phosphatase 68 U/L (41-126); BUN/Creat Ratio 16.75 Ratio (12.00-20.00); Blood Urea Nitrogen 13.4 mg/dL (9.0-27.0); Calcium 9.8 mg/dL (8.7-10.3); Carbon Dioxide 27.3 mmol/L (21.6-31.8); Chloride 101 mmol/L (96-109); Chol/HDL Ratio 2.86 Ratio; Globulin 2.8 g/dL (1.6-3.3); Glucose 97 mg/dL (70-110); LDL Cholesterol,Calculated 121.1 mg/dL (0.0-131.0); Potassium 4.7 mmol/L (3.5-5.5); Sodium 141 mmol/L (135-145); Total Bilirubin 1.4 mg/dL (0.3-1.2); Total Protein 7.3 g/dL (6.2-8.2); Uric Acid 4.2 mg/dL (2.9-7.7)
== END | disposition home or self-care (01) ==
LOC: LABWHC1 09:31
PROVIDERS: ATTEND Internal Medicine
DX: Z00.00 Encounter for general adult medical examination without abnormal findings (principal); Z12.31 Encounter for screening mammogram for malignant neoplasm of breast; E03.9 Hypothyroidism, unspecified; M81.0 Age-related osteoporosis without current pathological fracture; E78.2 Mixed hyperlipidemia; M13.80 Other specified arthritis, unspecified site; R73.03 Prediabetes; D51.0 Vitamin B12 deficiency anemia due to intrinsic factor deficiency; M51.36 Other intervertebral disc degeneration, lumbar region; M43.16 Spondylolisthesis, lumbar region; M85.80 Other specified disorders of bone density and structure, unspecified site
CPT/HCPCS: 36415; 72070; 72100; 80053; 80061; 82306; 82607; 82746; 83036; 84443; 84550; 85025

== ENCOUNTER → 2024-03-16 | Outpatient (CLI) | payer MEDICARE ==
[2024-03-16 13:03] LABS: BUN/Creat Ratio 13.57 Ratio (12.00-20.00); Blood Urea Nitrogen 9.5 mg/dL (9.0-27.0); Chloride 102 mmol/L (96-109); Chol/HDL Ratio 2.56 Ratio; Glucose 95 mg/dL (70-110); LDL Cholesterol,Calculated 83.7 mg/dL (0.0-131.0); Potassium 4.6 mmol/L (3.5-5.5); Sodium 139 mmol/L (135-145); VLDL Calculation 17.48 mg/dL (5.00-40.00)
[2024-03-16 13:04] LABS: ALT 18 U/L (8-44); AST 23 U/L (13-35); Albumin 4.4 g/dL (3.8-4.9); Alkaline Phosphatase 55 U/L (41-126); Calcium 9.2 mg/dL (8.7-10.3); Carbon Dioxide 25.8 mmol/L (21.6-31.8); Globulin 2.1 g/dL (1.6-3.3); Total Bilirubin 1.6 mg/dL (0.3-1.2); Total Protein 6.5 g/dL (6.2-8.2)
== END | disposition home or self-care (01) ==
LOC: LABWHC1 08:23
PROVIDERS: ATTEND Nurse Practitioner Adult Health
DX: I10 Essential (primary) hypertension (principal); E78.2 Mixed hyperlipidemia
CPT/HCPCS: 36415; 80053; 80061

== ENCOUNTER 2024-04-10 08:54 | Day surgery (SDC) | payer MEDICARE ==
[2024-04-08 09:05] VITALS: BMI 27.4
[2024-04-10 09:39] VITALS: TEMP 97.3
[2024-04-10] MEDS: IV FLUID CONTINUATION 1,000 ML IV ONE (09:47)
[2024-04-10] MEDS: LACTATED RINGERS 1,000 ML IV SCH (09:48)
[2024-04-10] MEDS ORDERED: LIDOCAINE 1% INJ 10MG/ML (20 ML MDV) ONE (10:34)
[2024-04-10] MEDS ORDERED: PROPOFOL 10 MG/ML 20 ML VIAL IV ONE (10:34)
--- NOTE | 2024-04-10 10:43 | P.PCN ---
Date of Procedure: 04/10/24 Procedure(s) Performed: BRIEF HISTORY: Patient is a 73-year-old, pleasant, white female scheduled for upper endoscopy as a part of surveillance of pernicious anemia. PROCEDURE PERFORMED: Esophagogastroduodenoscopy with biopsy. PREOPERATIVE DIAGNOSIS: History of pernicious anemia. IV sedation per anesthesia. PROCEDURE: After informed consent was obtained, the patient was brought into the endoscopy unit. IV sedation was administered by Anesthesia under continuous monitoring. Initially the Olympus GIF-140 video endoscope was inserted into the mouth. Esophagus intubated without any difficulty. It was gradually advanced into the stomach and duodenum and carefully examined. The bulb and the second part of the duodenum appeared normal. The scope at this time was withdrawn to the stomach, adequately insufflated with air, and upon careful examination, mucosa of the antrum, body and medical studies and biopsies were done from this area. In the proximal body of the stomach there was a 3 to 4 mm gastric polyp that was biopsied. Mucosa of cardia and the fundus appeared normal. The scope was then withdrawn into the esophagus. The GE junction was located at 39 cm from the incisors. The esophagus appeared normal. There were no erosions or ulcerations seen and the patient tolerated the procedure well. IMPRESSION: 1. Mild diffuse gastritis. 2. Small 3 to 4 mm gastric polyp in the proximal body of the stomach s/p biopsy. RECOMMENDATIONS: The findings of this examination were discussed with the patient as well as her family. She was advised to follow-up with the biopsy results. Recommended repeat upper endoscopy every 2 years..
[2024-04-10 11:28] VITALS: RESP 18
[2024-04-10 11:30] VITALS: BP 119/58; PULSE 64
== END 2024-04-10 11:34 | disposition home or self-care (01) ==
LOC: ORWHC2ENDO 08:54
PROVIDERS: ATTEND Internal Medicine Gastroenterology
DX: K29.50 Unspecified chronic gastritis without bleeding (principal); K31.7 Polyp of stomach and duodenum; K31.A0 Gastric intestinal metaplasia, unspecified; E78.5 Hyperlipidemia, unspecified; I48.91 Unspecified atrial fibrillation; E07.9 Disorder of thyroid, unspecified; D64.9 Anemia, unspecified; K21.9 Gastro-esophageal reflux disease without esophagitis; Z79.890 Hormone replacement therapy; Z79.899 Other long term (current) drug therapy; Z98.890 Other specified postprocedural states; Z79.01 Long term (current) use of anticoagulants
CPT/HCPCS: 88305; 43239; J2001; J2704

== ENCOUNTER → 2024-04-22 | Outpatient (CLI) | payer MEDICARE ==
--- NOTE | 2024-04-22 12:52 | CT ---
EXAMINATION TYPE: CT abdomen pelvis wo con DATE OF EXAM: 04/22/2024 COMPARISON: 09/07/2021 HISTORY: 73-year-old female R10.31, right sided groin pain CT DLP: 1195 mGycm. Automated exposure control for dose reduction was used. TECHNIQUE: Contiguous axial scanning of the abdomen and pelvis without IV contrast. Coronal and sagit ame reconstructions performed. FINDINGS: Heart upper limits of normal in size without pericardial effusion. Strandy atelectasis or scarring in the lower lungs without pleural effusion. Tiny hiatal hernia. Hemiazygos continuation of the IVC. Noncontrast appearance of the liver, right adrenal gland, right kidney, spleen, and pancreas show no gross abnormality. A 3.0 cm cortical cyst lower pole left kidney slightly increased from 2.6 cm, previously. Cholecystectomy clips. Moderate atherosclerotic calcifications abdominal aorta. No dilated small bowel, free fluid, or free air. No mesenteric or retroperitoneal lymphadenopathy. Moderate stool burden. Redundant distal sigmoid colon. Oral contrast progressed to the right side of the colon. No pericolonic inflammatory change. No inguinal or femoral canal hernia is seen. Bladder is partially distended. Uterus surgically absent . Visualization of the bilateral ovaries. There is pelvic floor relaxation redemonstrated possibly sl ightly worsened from 09/07/2021. Bones: Osteopenia. Moderate to severe degenerative change right hip and mild to moderate at the left hip. Degenerative grade 1 anterolisthesis L2-L3 and L4-L5. Hypertrophic facet arthropathy mid to lower lum bar spine. IMPRESSION: 1. Moderate stool burden without acute inflammatory process identified. Patient status post cholecys tectomy and hysterectomy. 2. Pelvic floor relaxation slightly increased from 2020. 3. Tiny hiatal hernia and incidental hemiazygos continuation of the IVC.
== END | disposition home or self-care (01) ==
LOC: RADCTMAIN 09:24
PROVIDERS: ATTEND Internal Medicine
DX: Z90.710 Acquired absence of both cervix and uterus (principal); Z90.49 Acquired absence of other specified parts of digestive tract; K44.9 Diaphragmatic hernia without obstruction or gangrene
CPT/HCPCS: 74176

== ENCOUNTER 2024-07-21 19:46 | Emergency (ER) | payer MEDICARE ==
[2024-07-21 20:01] VITALS: TEMP 98.5
[2024-07-21 20:28] LABS: Basophils % (A) 0 %; Eosinophils # (A) 0.3 k/uL (0-0.7); Eosinophils % (A) 4 %; HCT 40.7 % (34.0-46.0); HGB 13.3 gm/dL (11.4-16.0); Lymphocytes # (A) 2.1 k/uL (1.0-4.8); Lymphocytes % (A) 30 %; MCH 29.5 pg (25.0-35.0); MCHC 32.6 g/dL (31.0-37.0); MCV 90.4 fL (80.0-100.0); Mean Platelet Volume 7.4; Monocytes # (A) 0.6 k/uL (0-1.0); Monocytes % (A) 8 %; Neutrophils # (A) 3.8 k/uL (1.3-7.7); Neutrophils % (A) 54 %; Platelet Count 226 k/uL (150-450); RDW 14.4 % (11.5-15.5); WBC 7.1 k/uL (3.8-10.6)
[2024-07-21 20:37] LABS: Appearance,Urine Clear (Clear); Bacteria,Urine Rare /hpf; Bilirubin,Urine Negative (Negative); Blood,Urine Negative (Negative); Color,Urine Light Yellow; Glucose,Urine (UA) Negative (Negative); Ketones,Urine Negative (Negative); Leukocyte Esterase,Urine Moderate (Negative); Mucus,Urine Occasional /hpf; Nitrite,Urine Negative (Negative); PH, Urine 5.5 (5.0-8.0); Protein,Urine Negative (Negative); RBC,Urine 2 /hpf (0-5); Specific Gravity,Urine 1.016 (1.001-1.035); Squamous Epithelial Cell,Urine 3 /hpf (0-4); Urobilinogen,Urine <2.0 mg/dL (<2.0); WBC,Urine 16 /hpf (0-5)
[2024-07-21 20:41] LABS: INR 1.5 (<1.2); Partial Thromboplastin Time 40.4 sec (22.0-30.0); Prothrombin Time 15.2 sec (10.0-12.5)
--- NOTE | 2024-07-21 20:41 | ED ---
Abdominal Pain HPI - General Chief Complaint: Abdominal Pain Stated Complaint: ABD Pain Time Seen by Provider: 07/21/24 20:03 Source: patient, RN notes reviewed Mode of arrival: ambulatory Limitations: no limitations - History of Present Illness Initial Comments: This is a 73-year-old female who presents to the emergency department for abdominal pain. Patient states that she was eating an early dinner around 4 PM. She then started to develop pain in the left upper quadrant radiating into the back. Denies any nausea or vomiting or changes in bowel or bladder habits. States that the rest of her abdomen is generally sore but not nearly as painful as the left upper quadrant. She does have a history of pancreatitis that was induced by an endoscopy several years ago, and states that symptoms feel somewhat similar. Denies any history of gastric ulcers. She does have a history of gastritis, but states that the pain feels different. Pain is worse when trying to inhale. MD Complaint: abdominal pain - Related Data Home Medications Medication Instructions Recorded Confirmed Cyanocobalamin [Vitamin B-12 250 mcg SQ Q14D 08/03/15 04/10/24 Injection] Sucralfate [Carafate] 1 gm PO QID PRN 08/03/15 04/10/24 Thyroid,Pork [Pax Thyroid] 15 mg PO DAILY 08/03/15 04/10/24 Multivitamins, Thera [Multivitamin 1 tab PO DAILY 08/11/17 04/10/24 (formulary)] Ascorbic Acid [Vitamin C] 1,000 mg PO DAILY 07/08/20 04/10/24 Glucosamine/MSM/Chrond/D3/Bosw 1 tab PO DAILY 07/08/20 04/10/24 [Glpuzfeaimq-Eadjcj-UVQ-D3 Cplt] Ezetimibe [Zetia] 10 mg PO W/SUPPER 09/06/21 04/10/24 Magnesium 200 mg PO DAILY 09/06/21 04/10/24 Rivaroxaban [Xarelto] 20 mg PO W/SUPPER 09/06/21 04/10/24 Ubiquinol [Co-Veratrol] 100 mg PO DAILY 09/06/21 04/10/24 Vit C/E/Zn/Coppr/Lutein/Zeaxan 1 tab PO BID 09/06/21 04/10/24 [Preservision Areds 2 Chew Tab] Calcium Crb,Cit/D3/Min34/Sujatha 1 each PO DAILY 04/08/24 04/10/24 [Citracal Plus Bone Density Tab] Metoprolol Tartrate [Lopressor] 25 mg PO TID 04/08/24 04/10/24 Rosuvastatin [Crestor] 5 mg PO HS 04/08/24 04/10/24 Previous Rx's Medication Instructions Recorded Cefpodoxime Proxetil [Vantin] 200 mg PO Q12HR 7 Days #14 tab 07/21/24 Allergies Allergy/AdvReac Type Severity Reaction Status Date / Time codeine Allergy Rash/Hives Verified 07/21/24 20:01 meperidine HCl [From Demerol] Allergy Rash/Hives Verified 07/21/24 20:01 Penicillins Allergy Rash/Hives Verified 07/21/24 20:01 Sulfa (Sulfonamide Allergy Rash/Hives Verified 07/21/24 20:01 Antibiotics) alcohol AdvReac Severe Flushing Verified 07/21/24 20:01 Review of Systems ROS Statement: Those systems with pertinent positive or pertinent negative responses have been documented in the HPI. ROS Other: All systems not noted in ROS Statement are negative. Past Medical History Past Medical History: Blood Disorder, Eye Disorder, GERD/Reflux, Thyroid Disorder Additional Past Medical History / Comment(s): Pernicious Anemia genetic type; hx fx lt wrist/hand. hypothyroid. History of Any Multi-Drug Resistant Organisms: None Reported Past Surgical History: Cholecystectomy, Hysterectomy, Orthopedic Surgery, Tonsillectomy Additional Past Surgical History / Comment(s): left knee x2, sinus, scleral buckle surgery, ORIF lt wrist (10-14-16). Colonoscopy, EGD's Past Anesthesia/Blood Transfusion Reactions: Motion Sickness, Postoperative Nausea & Vomiting (PONV) Additional Past Anesthesia/Blood Transfusion Reaction / Comment(s): no blood transfusions. Past Psychological History: No Psychological Hx Reported Smoking Status: Never smoker Past Alcohol Use History: None Reported Past Drug Use History: None Reported - Past Family History Mother Family Medical History: Deep Vein Thrombosis (DVT) General Exam Limitations: no limitations General appearance: alert, in no apparent distress Head exam: Present: atraumatic, normocephalic, normal inspection Respiratory exam: Present: normal lung sounds bilaterally. Absent: respiratory distress, wheezes, rales, rhonchi, stridor Cardiovascular Exam: Present: regular rate, normal rhythm, normal heart sounds. Absent: systolic murmur, diastolic murmur, rubs, gallop, clicks GI/Abdominal exam: Present: soft, tenderness (LUQ), normal bowel sounds. Absent: distended Back exam: Absent: CVA tenderness (R), CVA tenderness (L) Neurological exam: Present: alert, oriented X3, CN II-XII intact Psychiatric exam: Present: normal affect, normal mood Skin exam: Present: warm, dry, intact, normal color. Absent: rash Course Vital Signs 07/21/24 07/21/24 19:59 22:11 Temperature 98.5 F Pulse Rate 54 L 68 Respiratory 16 18 Rate Blood Pressure 155/74 142/72 O2 Sat by Pulse 99 96 Oximetry Medical Decision Making - Medical Decision Making This is a 73 year old female who presents to the emergency department for abdominal pain. Was pt. sent in by a medical professional or institution? @ -No Did you speak to anyone other than the patient for history? @ -No Did you review nursing and triage notes? @ -Yes, and I agree, it is accurate with regards to the patient's symptoms. Were old charts reviewed? @ -No Differential Diagnosis? @ -Differential Abdominal Pain Women: Appendicitis, Cholecystitis, diverticulosis, ischemic bowel, pancreatitis, hepatitis, UTI, gastroenteritis, AAA, incarcerated hernia, bowel obstruction, constipation, inflammatory bowel, hepatitis, peptic ulcer disease, splenic infarction, perforated viscus, vulvitis, ovarian torsion, PID, kidney stone, placenta abruption, this is not meant to be an all-inclusive list EKG interpreted by me (3pts min.)? @ -EKG interpreted by me demonstrating the following: Sinus rhythm. Ventricular rate 75 bpm, MN interval 169 ms, QRS duration 82 ms, QTc 416 ms. X-rays interpreted by me (1pt min.)? @ -Not obtained CT interpreted by me (1pt min.)? @ -CT scan of the abdomen and pelvis obtained. My interpretation identifies no evidence of bowel wall thickening or free air. U/S interpreted by me (1pt. min.)? @ -Not obtained What testing was considered but not performed? (CT, X-rays, U/S, labs)? Why? @ -None What meds were considered but not given? Why? @ -None Did you discuss the management of the patient with other professionals? @ -No Did you reconcile home meds? @ -No Was smoking cessation discussed for >3mins.? @ -No Was critical care preformed (if so, how long)? @ -No Were there social determinants of health that impacted care today? How? (Homelessness, low income, unemployed, alcoholism, drug addiction, transportation, low edu. Level, literacy, decrease access to med. care, care home, rehab)? @ -No Was there de-escalation of care discussed even if they declined? (Discuss DNR or withdrawal of care, Hospice)? @ -No What co-morbidities impacted this encounter? (DM, HTN, Smoking, COPD, CAD, Cancer, CVA, Hep., AIDS, mental health diagnosis, sleep apnea, morbid obesity)? @ -GERD Was patient admitted / discharged? @ -Discharged. Lab work unremarkable. Troponin and D-dimer negative. Pancreatic enzymes negative. Urinalysis potentially suggestive of infection and urine was sent for culture. CT scan of the abdomen and pelvis reveals no acute process. Findings reviewed with the patient. She declined the need for any pain medication in the emergency department. The pain in the left upper quadrant seemed to move when she was in the emergency department and spread to her lower abdomen, however she states that it was still a tolerable pain. She just finished Macrobid for a UTI about 10 days ago. States that she feels like she is having some suprapubic pressure and was concerned about developing another UTI. Advised that we can treat her given her symptoms and UA findings. She is in agreement with this. 1 g of Rocephin administered in the emergency department. Prescription for cefpodoxime provided. This was shown to be effective based on urine culture from earlier this month. Advised close follow- up with her PCP for reevaluation of UTI and her current symptoms. Patient discharged home in stable condition. Case discussed with ED attending Dr. Rios. Return precautions reviewed in depth, the patient is instructed to return to the emergency department with any new, worsening, or concerning symptoms. Patient verbalized understanding. Undiagnosed new problem with uncertain prognosis? @ -None Drug Therapy requiring intensive monitoring for toxicity (Heparin, Nitro, Insulin, Cardizem)? @ -None Were any procedures done? @ -None Diagnosis/symptom? @ -Abdominal pain, UTI Acute, or Chronic, or Acute on Chronic? @ -Acute Uncomplicated (without systemic symptoms) or Complicated (systemic symptoms)? @ -Uncomplicated Side effects of treatment? @ -None Exacerbation, Progression, or Severe Exacerbation] @ -Not applicable Poses a threat to life or bodily function? @ -No - Lab Data Result diagrams: 07/21/24 20:11 07/21/24 20:11 Lab Results 07/21/24 07/21/24 07/21/24 Range/Units 20:11 20:11 20:11 WBC 7.1 (3.8-10.6) k/uL RBC 4.50 (3.80-5.40) m/uL Hgb 13.3 (11.4-16.0) gm/dL Hct 40.7 (34.0-46.0) % MCV 90.4 (80.0-100.0) fL MCH 29.5 (25.0-35.0) pg MCHC 32.6 (31.0-37.0) g/dL RDW 14.4 (11.5-15.5) % Plt Count 226 (150-450) k/uL MPV 7.4 Neutrophils % 54 % Lymphocytes % 30 % Monocytes % 8 % Eosinophils % 4 % Basophils % 0 % Neutrophils # 3.8 (1.3-7.7) k/uL Lymphocytes # 2.1 (1.0-4.8) k/uL Monocytes # 0.6 (0-1.0) k/uL Eosinophils # 0.3 (0-0.7) k/uL Basophils # 0.0 (0-0.2) k/uL PT (10.0-12.5) sec INR (<1.2) APTT (22.0-30.0) sec D-Dimer (<0.60) mg/L FEU Sodium 137 (137-145) mmol/L Potassium 4.2 (3.5-5.1) mmol/L Chloride 102 (98-107) mmol/L Carbon Dioxide 26 (22-30) mmol/L Anion Gap 9 mmol/L BUN 12 (7-17) mg/dL Creatinine 0.73 (0.52-1.04) mg/dL Est GFR (CKD-EPI)AfAm >90 (>60 ml/min/1.73 sqM) Est GFR (CKD-EPI)NonAf 81 (>60 ml/min/1.73 sqM) Glucose 116 H (74-99) mg/dL Plasma Lactic Acid Viraj 1.4 (0.7-2.0) mmol/L Calcium 9.6 (8.4-10.2) mg/dL Total Bilirubin 1.3 (0.2-1.3) mg/dL AST 40 H (14-36) U/L ALT 30 (4-34) U/L Alkaline Phosphatase 63 (38-126) U/L Troponin I (0.000-0.034) ng/mL Total Protein 7.7 (6.3-8.2) g/dL Albumin 4.7 (3.5-5.0) g/dL Amylase 67 (30-110) U/L Lipase 171 (23-300) U/L Urine Color Urine Appearance (Clear) Urine pH (5.0-8.0) Ur Specific [place] (1.001-1.035) Urine Protein (Negative) Urine Glucose (UA) (Negative) Urine Ketones (Negative) Urine Blood (Negative) Urine Nitrite (Negative) Urine Bilirubin (Negative) Urine Urobilinogen (<2.0) mg/dL Ur Leukocyte Esterase (Negative) Urine RBC (0-5) /hpf Urine WBC (0-5) /hpf Ur Squamous Epith Cells (0-4) /hpf Urine Bacteria (None) /hpf Urine Mucus (None) /hpf 07/21/24 07/21/24 07/21/24 Range/Units 20:11 20:11 20:25 WBC (3.8-10.6) k/uL RBC (3.80-5.40) m/uL Hgb (11.4-16.0) gm/dL Hct (34.0-46.0) % MCV (80.0-100.0) fL MCH (25.0-35.0) pg MCHC (31.0-37.0) g/dL RDW (11.5-15.5) % Plt Count (150-450) k/uL MPV Neutrophils % % Lymphocytes % % Monocytes % % Eosinophils % % Basophils % % Neutrophils # (1.3-7.7) k/uL Lymphocytes # (1.0-4.8) k/uL Monocytes # (0-1.0) k/uL Eosinophils # (0-0.7) k/uL Basophils # (0-0.2) k/uL PT 15.2 H (10.0-12.5) sec INR 1.5 H (<1.2) APTT 40.4 H (22.0-30.0) sec D-Dimer 0.21 (<0.60) mg/L FEU Sodium (137-145) mmol/L Potassium (3.5-5.1) mmol/L Chloride (98-107) mmol/L Carbon Dioxide (22-30) mmol/L Anion Gap mmol/L BUN (7-17) mg/dL Creatinine (0.52-1.04) mg/dL Est GFR (CKD-EPI)AfAm (>60 ml/min/1.73 sqM) Est GFR (CKD-EPI)NonAf (>60 ml/min/1.73 sqM) Glucose (74-99) mg/dL Plasma Lactic Acid Viraj (0.7-2.0) mmol/L Calcium (8.4-10.2) mg/dL Total Bilirubin (0.2-1.3) mg/dL AST (14-36) U/L ALT (4-34) U/L Alkaline Phosphatase (38-126) U/L Troponin I <0.012 (0.000-0.034) ng/mL Total Protein (6.3-8.2) g/dL Albumin (3.5-5.0) g/dL Amylase (30-110) U/L Lipase (23-300) U/L Urine Color Light Yellow Urine Appearance Clear (Clear) Urine pH 5.5 (5.0-8.0) Ur Specific [place] 1.016 (1.001-1.035) Urine Protein Negative (Negative) Urine Glucose (UA) Negative (Negative) Urine Ketones Negative (Negative) Urine Blood Negative (Negative) Urine Nitrite Negative (Negative) Urine Bilirubin Negative (Negative) Urine Urobilinogen <2.0 (<2.0) mg/dL Ur Leukocyte Esterase Moderate H (Negative) Urine RBC 2 (0-5) /hpf Urine WBC 16 H (0-5) /hpf Ur Squamous Epith Cells 3 (0-4) /hpf Urine Bacteria Rare H (None) /hpf Urine Mucus Occasional H (None) /hpf - Radiology Data Radiology results: report reviewed, image reviewed Disposition Clinical Impression: Abdominal pain, UTI (urinary tract infection) Disposition: HOME SELF-CARE Instructions (If sedation given, give patient instructions): Urinary Tract Infection in Women (ED), Abdominal Pain (ED) Additional Instructions: Return to the emergency department with any new, worsening, or concerning symptoms. Take the antibiotic as prescribed for 7 days. Follow up with your primary care provider in 1-2 days. Prescriptions: Cefpodoxime Proxetil [Vantin] 200 mg PO Q12HR 7 Days #14 tab Is patient prescribed a controlled substance at d/c from ED?: No Referrals: Marianna Jc MD [Primary Care Provider] - 1-2 days Time of Disposition: 21:56
[2024-07-21 20:43] LABS: ALT 30 U/L (4-34); AST 40 U/L (14-36); African American GFR (CKD) >90 (>60 ml/min/1.73 sqM); Albumin 4.7 g/dL (3.5-5.0); Alkaline Phosphatase 63 U/L (38-126); Amylase 67 U/L (30-110); Anion Gap 9 mmol/L; Blood Urea Nitrogen 12 mg/dL (7-17); Calcium 9.6 mg/dL (8.4-10.2); Carbon Dioxide 26 mmol/L (22-30); Chloride 102 mmol/L (98-107); Glucose 116 mg/dL (74-99); Lipase 171 U/L (23-300); Non-African American GFR(CKD) 81 (>60 ml/min/1.73 sqM); Potassium 4.2 mmol/L (3.5-5.1); Sodium 137 mmol/L (137-145); Total Bilirubin 1.3 mg/dL (0.2-1.3); Total Protein 7.7 g/dL (6.3-8.2)
--- NOTE | 2024-07-21 21:30 | CT ---
EXAMINATION TYPE: CT abdomen pelvis w con DATE OF EXAM: 07/21/2024 9:07 PM COMPARISON: 04/22/2024 CLINICAL INDICATION: Female, 73 years old with history of LUQ pain; LUQ pain TECHNIQUE: Axial CT abdomen pelvis w con;Sagittal and coronal reformats were created on a separate w orkstation. Contrast used:100 ml mL of Isovue 370 with IV Contrast, (none if empty) Oral contrast used: without Oral Contrast (none if empty) CT DLP: 848.1 mGycm, Automated exposure control for dose reduction was used. FINDINGS: LOWER CHEST: Unremarkable ABDOMEN LIVER: Unremarkable GALLBLADDER AND BILE DUCTS: The gallbladder is surgically absent. PANCREAS: Unremarkable. SPLEEN: Unremarkable. ADRENAL GLANDS: Unremarkable. KIDNEYS AND URETERS: No evidence of hydronephrosis or renal calculus. The ureters are unremarkable. Left inferior simple renal cysts. PELVIS BLADDER: No evidence for wall thickening or mass given limitations of exam. REPRODUCTIVE: The uterus is surgically absent. ABDOMEN & PELVIS STOMACH AND BOWEL: No evidence of bowel obstruction. There is redundant colon. PERITONEUM/RETROPERITONEUM: No evidence of pneumoperitoneum or free fluid. VASCULATURE: Mild atherosclerotic calcifications are present throughout the abdominal aorta and its b ranches. No evidence of aortic aneurysm. MUSCULOSKELETAL: No acute osseous abnormalities, grade 1 anterolisthesis of L2 on L3 and L4 and L5. N o evidence for spondylolysis. Moderate to severe degeneration changes of the right hip with joint spa ce narrowing osteophyte formation. LYMPH NODES: No gross evidence for lymphadenopathy. SOFT TISSUE/ABDOMINAL WALL: Unremarkable IMPRESSION: No evidence for acute abdominal process. [facility], Workstation: [employer][id number], 07/21/2024 9:28 PM
[2024-07-21] MEDS: cefTRIAXone IN SWFI 1,000 MG/10 ML SYRINGE IVP STA (22:12)
[2024-07-21 22:20] VITALS: BP 142/72; PULSE 68; RESP 18
== END 2024-07-21 22:15 | disposition home or self-care (01) ==
LOC: EC 19:46
CPT/HCPCS: 36415; 74177; 80053; 81001; 82150; 83605; 83690; 84484; 85025; 85379; 85610; 85730; 87086; 93005; 96374; 99284

== ENCOUNTER → 2024-09-27 | Outpatient (CLI) | payer MEDICARE ==
[2024-09-27 15:52] LABS: ALT 20 U/L (8-44); AST 22 U/L (13-35); Chol/HDL Ratio 2.56 Ratio; LDL Cholesterol,Calculated 95.2 mg/dL (0.0-131.0); VLDL Calculation 14.58 mg/dL (5.00-40.00)
== END | disposition home or self-care (01) ==
LOC: LABWHC1 08:02
PROVIDERS: ATTEND Internal Medicine Interventional Cardiology
DX: E78.2 Mixed hyperlipidemia (principal)
CPT/HCPCS: 36415; 80061; 84450; 84460

== ENCOUNTER → 2024-10-08 | Outpatient (CLI) | payer MEDICARE ==
[2024-10-08 17:09] LABS: ALT 20 U/L (8-44); AST 22 U/L (13-35); Albumin 4.3 g/dL (3.8-4.9); Albumin/Globulin Ratio 1.87 Ratio (1.60-3.17); Alkaline Phosphatase 62 U/L (41-126); BUN/Creat Ratio 14.43 Ratio (12.00-20.00); Blood Urea Nitrogen 10.1 mg/dL (9.0-27.0); Calcium 9.4 mg/dL (8.7-10.3); Carbon Dioxide 27.1 mmol/L (21.6-31.8); Chloride 104 mmol/L (96-109); Globulin 2.3 g/dL (1.6-3.3); Glucose 95 mg/dL (70-110); Potassium 4.7 mmol/L (3.5-5.5); Sodium 141 mmol/L (135-145); Total Bilirubin 1.5 mg/dL (0.3-1.2); Total Protein 6.6 g/dL (6.2-8.2)
== END | disposition home or self-care (01) ==
LOC: LABWHC1 08:25
PROVIDERS: ATTEND Internal Medicine
DX: M81.0 Age-related osteoporosis without current pathological fracture (principal)
CPT/HCPCS: 36415; 80053; 82523; 83970; 84443

== ENCOUNTER → 2025-01-15 | Outpatient (CLI) | payer MEDICARE ==
--- NOTE | 2025-01-15 13:36 | MM ---
Reason for Exam: Screening (asymptomatic). Last mammogram was performed 1 year(s) and 1 month(s) ago. Patient History: Menarche at age 9. First Full-Term at age 26. Hysterectomy at age 53. Postmenopausal. Estrogen, starting at age 54 for 4 years, 4 months. Risk Values: Adele 5 year model risk: 2.2%. NCI Lifetime model risk: 4.4%. Prior Study Comparison: 11/18/2021 Bilateral Screening Mammogram, [facility]. 11/24/2022 Bilateral MG 3D screening mammo w/cad, [facility]. 11/27/2023 Bilateral MG 3D screening mammo w/cad, [facility]. Tissue Density: There are scattered areas of fibroglandular density. Findings: Analyzed By CAD. There is no suspicious group of microcalcifications or new suspicious mass in either breast. Overall Assessment: Negative, BI-RAD 1 Management: Screening Mammogram of both breasts in 1 year. . Patient should continue monthly self-breast exams. A clinical breast exam by your physician is recommended on an annual basis. This exam should not preclude additional follow-up of suspicious palpable abnormalities. Note on Adele scores and lifetime risk: 1. A Adele score greater than 3% is considered moderate risk. If this is the case, consider specialist referral to assess eligibility for a risk reducing agent. 2. If overall lifetime risk for the development of breast cancer is 20% or higher, the patient may qualify for future screening with alternating mammogram and breast MRI. [facility], , 01/15/2025 1:33 PM. Electronically signed and approved by: Gopal Jensen M.D. [facility]
== END | disposition home or self-care (01) ==
LOC: RADMAMWWP 13:11
PROVIDERS: ATTEND Internal Medicine
DX: Z12.31 Encounter for screening mammogram for malignant neoplasm of breast (principal); R92.323 Mammographic fibroglandular density, bilateral breasts; Z78.0 Asymptomatic menopausal state
CPT/HCPCS: 77063; 77067

== ENCOUNTER → 2025-04-03 | Outpatient (CLI) | payer MEDICARE ==
[2025-04-03 15:44] LABS: ALT 23 U/L (8-44); AST 28 U/L (13-35); Cholesterol 182.00 mg/dL (0.00-200.00); HDL Cholesterol 71.80 mg/dL (40.00-60.00); LDL Cholesterol,Calculated 93.4 mg/dL (0.0-131.0); Triglycerides 84.00 mg/dL (0.00-149.00); VLDL Calculation 16.80 mg/dL (5.00-40.00)
== END | disposition home or self-care (01) ==
LOC: LABWHC1 09:29
PROVIDERS: ATTEND Internal Medicine
DX: E78.2 Mixed hyperlipidemia (principal); M81.0 Age-related osteoporosis without current pathological fracture
CPT/HCPCS: 36415; 80061; 84443; 84450; 84460